=== PATIENT | female | born 1960 | race Caucasian/White ===

== ENCOUNTER → 2018-11-29 13:58 | Outpatient (CLI) | payer MEDICARE, SELFPAY | PROVIDERS: PCP General Practice; Visit Provider Nurse Practitioner Family | DX: R00.2 Palpitations (principal) | CPT/HCPCS: 93270 ==

== ENCOUNTER → 2021-10-31 06:58 | Outpatient (CLI) | payer MEDICARE, MEDICAID, SELFPAY ==
--- NOTE | 2021-10-31 06:59 | CA_ITS ---
APPROVED REPORT EXAM: Comprehensive 2D, Doppler, and color-flow Echocardiogram Cylinder Handler: Rebecca Rogers RVT Ht: 5 ft 2 in Wt: 187lbs BSA: 1.86 BP: 155/73 mmHg Indications: CP,SOA,LILA,LOOP RECORDER,COPD,PALPS,HTN,HLD 2D Dimensions LVOT 2.24 cm (M/F) 1.5-2.5 LA Volume 28.00 mL LA Volume Index 15.13 mL/m2 (M/F) 16-34 M-Mode Dimensions RVDd 1.82 cm (0.9-2.6) LA Diam 3.26 cm (1.9-4.0) LVDd 3.90 cm (3.5-5.7) Ao Diam 2.75 cm (2.0-3.7) LVDs 2.08 cm (3.5-5.7) IVSd 0.59 cm (0.6-1.1) PWd 1.19 cm (0.6-1.1) EF (Teich) 78.60% FS 46.70% EDV (Teich) 65.90 mL TAPSE 2.64 (<1.7) ESV (Teich) 14.10 mL LV Diastology E Decel Time 157.00 (160-240 msec) E/A Ratio 0.9 MED E' 7.80 (< 7 cm/sec) E'/MED E' Ratio 7.81 (>14) LAT E' 9.40 (<10 cm/sec) E/LAT E' Ratio 6.48 (>14) Aortic Valve AO Peak GR. 6.00 mmHg Mitral Valve MV E Max Andrea. 61.00 (40-130 cm/s) MV A Velocity 67.00 (40-130 cm/s) E/A Ratio 0.91 MV Decel. Time 157.00 (160-240 ms) MV PHT 46.00 ms Pulmonary Valve PV Peak Velocity 101.00 (50-150 cm/s) Tricuspid Valve TR P. Velocity 117.00 cm/s RAP Estimate 10.00 mmHg RVSP 15.50 mmHg Left Ventricle Left atrium is normal size, left ventricle is normal size, there is no concentric left ventricular hypertrophy, visually estimated ejection fraction 55% with no regional wall motion abnormality, diastolic parameters are within normal range. Right Ventricle Right atrium and right ventricle are normal size and contractility. Aortic Valve Aortic valve is grossly normal, there is no aortic stenosis or aortic insufficiency. Mitral Valve Mitral valve grossly normal, there is trace mitral regurgitation. Tricuspid Valve Tricuspid grossly normal, there is trace tricuspid regurgitation, tricuspid regurgitation jet velocity is inadequate for calculation of the right ventricular systolic pressure. Pulmonic Valve Pulmonic valve is poorly visualized. Great Vessels Aortic root is normal size. Inferior vena cava is normal size with normal inspiratory collapse. Pericardium No significant pericardial effusion noted. Conclusion 1. Normal left ventricular size, preserved left ventricular systolic function, visually estimated ejection fraction 55% with no regional wall motion abnormality, diastolic parameters are within normal range. 2. Trace mitral and tricuspid regurgitation. 3. No significant pericardial effusion. 4. Inferior vena cava is normal size with normal inspiratory collapse. Electronically signed by : Ricardo Wheeler MD 10/31/2021 16:03:23
--- NOTE | 2021-10-31 06:59 | CA_ITS ---
APPROVED REPORT Exam: Pharmacologic Technologist: Bre Hooper, Ht: 5 ft 2 in Wt: 187 lbs BSA: 1.86 m2 HR: 63 bpm BP: 118/65 mmHg Rhythm: NSR Medical History Medical History: HTN, Hyperlipidemia Medications: Omeprazole,,,,, Aspirin,,,,, Pravastatin,,,,, Metoprolol Tartrate,,,,, Citalopram,,,,, Duoneb,,,,, Ropinirole,,,,, Estradiol,,,,, Tramadol,,,,, TriaMeRTINE,,,,, Allergies: TETRACYCLINES Cardiac Risk Factors: HTN, Hyperlipidemia Stress Test Details Test: LEXISCAN HR Resting HR: 70 bpm Max Heart Rate (APMHR): 157.080902 bpm Max HR Achieved: 85 bpm Target HR (85% APMHR): 133.022607 bpm % of APMHR: 54.14 Recovery HR: 79 bpm BP Resting BP: 118/65 mmHg Max BP: 151/60 mmHg Recovery BP: 142.0/52.0 mmHg ECG Resting ECG: NSR Clinical Reason for Termination: Completed Protocol Exercise duration: 04:01 min Highest Stage Achieved: Stress ECG Conclusion <1.[address] SEGMENT CHANGES. NON-DIAGNOSTIC Test Summary RECOVERY 01:32 . . 76 . 142/ 52 . . Stage 1 01:00 . . 84 . . . . Stage 2 01:00 . . 83 . . . . Stage 3 01:00 . . 82 . 141/ 61 . . Stage 4 01:00 . . 79 . 128/ 62 . . Stage 4 01:01 . . 79 . 128/ 62 . Stop exercise at 04:01 RECOVERY 01:00 . . 78 . . . . RECOVERY 01:32 . . 76 . 142/ 52 . . Electronically signed by : Ricardo Wheeler MD 10/31/2021 12:13:13
--- NOTE | 2021-10-31 06:59 | NM_ITS ---
APPROVED REPORT Exam: Nuclear Stress Test Indication: HTN, HYPERLIPIDEMIA, FM HX., C.P., SOB, PALPITATIONS, FATIGUE Patient Location: Outpatient Stress Tech: Bre Hooper RI Tech:BRONSON Carmona RT (R)(N)(M) Ht: 5 ft 3 in Wt: 184 lbs Bra Size: 38C HR: 63 bpm BP: 118/65 mmHg BSA: 1.87 m2 BMI: 32.5 History: HTN, HYPERLIPIDEMIA, FM HX., C.P., SOB, PALPITATIONS, FATIGUE Procedure: Patient received a 0.4 mg of intravenous Lexiscan, resting heart rate 63 bpm, resting blood pressure 118/65 mmHg, with Lexiscan maximum heart rate achived was 84 bpm which is Less than 85 % of the maximum predicted heart rate and blood pressure was 151/60 mmHg. With Lexiscan, patient denied any complaint of chest pain. Electrocardiogram Still electrocardiogram shows sinus rhythm, with Lexiscan there is less than 1.[address] segment depression noted from the baseline EKG. The EKG portion of the Lexiscan is nondiagnostic. Cardiac Stress and Resting SPECT Images: Cardiac Stress and Resting SPECT images were obtained using technetium 99m Myoview 29.9 mCi stress and 10.81 mCi at rest. Gated SPECT for analysis of segmental wall motion and calculation of the ejection fraction also done. Cardiac stress and resting SPECT images show mild fixed defect in the anterior wall with normal contractility on the gated SPECT is likely secondary to soft tissue attenuation, no reversible ischemia seen, computer derived ejection fraction is 60% with no regional wall motion abnormality, right ventricle is normal size and contractility. Conclusion: 1. The EKG portion of the Lexiscan is nondiagnostic. 2. No scintigraphic evidence of reversible ischemia seen, computer derived ejection fraction 60% with no regional wall motion abnormality, right ventricle is normal size and contractility. 3. Likely normal Lexiscan Myoview study. Electronically signed by : Ricardo Wheeler MD 10/31/2021 12:15:30
== END ==
PROVIDERS: PCP General Practice; Visit Provider Physician Assistant
DX: E78.2 Mixed hyperlipidemia (principal); G47.33 Obstructive sleep apnea (adult) (pediatric); I10 Essential (primary) hypertension; R07.89 Other chest pain; Z98.890 Other specified postprocedural states; R06.00 Dyspnea, unspecified
CPT/HCPCS: 78452; 93017; 93306; A9502; J2785

== ENCOUNTER 2023-04-10 08:57 | Emergency (ER) | payer MEDICARE, MEDICAID, SELFPAY ==
[2023-04-10] VITALS (23 sets, daily range): BP systolic 108–149; BP diastolic 49–75; PULSE 60–71; RESP 13–20; TEMP 36.6–36.7; O2SAT 90–97; BMI 34.5
--- NOTE | 2023-04-10 08:57 | ECG_ITS ---
APPROVED REPORT Exam: Resting ECG HR:68 bpm ECG Measurements Heart Rate 68 AXES WY 205 P 73 QRSd 105 QRS 79 QT 408 T 73 QTc 425 Conclusion SINUS RHYTHM NORMAL ECG UNCONFIRMED REPORT Electronically signed by : Angel Luis Clark MD 04/12/2023 15:54:11
--- NOTE | 2023-04-10 09:04 | PC.NURSE ---
PT ACCEPTED BY DR ZAVALA FOR ADMISSION
--- NOTE | 2023-04-10 09:09 | PC.NURSE ---
Dr. Cadet at bs for pt eval
--- NOTE | 2023-04-10 09:14 | XR_ITS ---
PROCEDURE INFORMATION: Exam: XR Chest Exam date and time: 04/10/2023 9:31 AM Age: 62 years old Clinical indication: Chest wall pain and radiating; Additional info: Chest pain TECHNIQUE: Imaging protocol: Radiologic exam of the chest. Views: 1 view. COMPARISON: No relevant prior studies available. FINDINGS: Tubes, catheters and devices: Loop recorder overlies the left heart Lungs: Mild opacity in the medial right base Pleural spaces: Unremarkable. No pleural effusion. No pneumothorax. Heart/Mediastinum: Unremarkable. No cardiomegaly. Bones/joints: Unremarkable. IMPRESSION: Mild opacity in the medial right base may represent atelectasis or pneumonia..
--- NOTE | 2023-04-10 09:15 | HMH.EDGENADL ---
Discharge Plan Disposition Patient Disposition: Still a Patient Condition: Good Chief Complaint: Chest Pain Prescriptions Prescriptions: No Action aspirin [Aspir-81] 81 mg tablet,delayed release (DR/EC) 81 mg PO DAILY citalopram 20 mg tablet 20 mg PO DAILY estradiol 0.5 mg tablet 0.5 mg PO DAILY tramadol 50 mg tablet 25 mg PO BID omeprazole 20 mg capsule,delayed release(DR/EC) 20 mg PO DAILY ropinirole 1 mg tablet 1 mg PO QHS triamterene-hydrochlorothiazid [Maxzide] 75-50 mg tablet 1 tab PO DAILY Qty: 90 4RF metoprolol tartrate 75 mg tablet 75 mg PO BID Qty: 180 3RF ipratropium-albuterol 0.5 mg-3 mg(2.5 mg base)/3 mL solution for nebulization 3 ml INHALATION QID PRN (Reason: shortness of breath) Qty: 3 3RF rosuvastatin [Crestor] 40 mg tablet 40 mg PO DAILY Qty: 30 11RF Activity Restrictions/Add. Instructions Additional Instructions/Restrictions: At this time is slightly safe to be discharged home. If new or worsening symptoms please do not hesitate to return the emergency department. Please call and schedule follow-up appointment with Dr. Garrison as soon as you are able for continued evaluation of your chest pain and elevated kidney function. Clinical Impressions Clinical Impression: Creatinine elevation, Chest pain Discharge ED Provider: Flynn Cadet General Adult HPI General Chief complaint: Chest Pain Stated complaint: chest pain Time Seen by Provider: 04/10/23 09:04 Mode of Arrival: Ambulatory Source of Information: Patient Limitations: No Limitations Description of Symptoms (Recalled from ER Triage Doc. by RN): PT C/O PAIN UNDER LEFT SHOULDER AND LEFT BREAST THAT STARTED YESTERDAY AM. C/O LEFT ARM TINGLING THAT BEGAN THIS AM. DENIES SHORTNESS OF BREATH, DENIES N/V History of Present Illness HPI narrative: Patient is a 62-year-old female with past medical history of hypertension, previous palpitations, hyperlipidemia who presents emergency department for evaluation of chest pain. Onset was acute, occurring Wednesday, starting in her shoulder blades radiating through to her chest. Largely nonmodifiable with the exception of laying down with slight improvement. Patient denies acute cough, abdominal pain, dysuria, other acute complaints at this time. Related Data Home Medications Medication Instructions Recorded Confirmed aspirin 81 mg tablet,delayed 81 mg PO DAILY 05/16/18 01/06/23 release (Aspir-) citalopram 20 mg tablet 20 mg PO DAILY 05/16/18 01/06/23 estradiol 0.5 mg tablet 0.5 mg PO DAILY 05/16/18 01/06/23 ropinirole 1 mg tablet 1 mg PO QHS 01/30/19 01/06/23 tramadol 50 mg tablet 25 mg PO BID 01/30/20 01/06/23 omeprazole 20 mg capsule,delayed 20 mg PO DAILY 02/04/21 01/06/23 release Previous Rx's Medication Instructions Recorded triamterene 75 1 tab PO DAILY #90 tabs 01/30/20 mg-hydrochlorothiazide 50 mg tablet (Maxzide) metoprolol tartrate 75 mg tablet 75 mg PO BID #180 tabs 11/19/21 ipratropium 0.5 mg-albuterol 3 mg 3 ml inhalation QID PRN shortness 11/21/21 (2.5 mg base)/3 mL nebulization of breath #3 mL soln rosuvastatin 40 mg tablet (Crestor) 40 mg PO DAILY #30 tabs 09/22/22 Allergies Allergy/AdvReac Type Severity Reaction Status Date / Time Tetracyclines [TETRACYCLINES] Allergy Unknown Verified 01/06/23 10:55 amlodipine AdvReac cough Verified 01/06/23 10:55 [facility] Disclaimer: The information contained in this section may have been updated after the patient was seen, as this information can be updated by other users. Medical History Chest pain Dyspnea Social History Smoking Status: Current every day smoker tobacco type: cigarettes second hand exposure: No alcohol intake: never substance use type: denies use current occupational status: employed and unemployed Travel in the last 8
--- NOTE | 2023-04-10 09:35 | PC.NURSE ---
RAD at for cxr
[2023-04-10 09:48] LABS: Basophils # 0.1 K/mm3 (0-0.2); Basophils % 0.8 % (0.1-2.0); Eosinophils # 0.2 K/mm3 (0.0-0.4); Eosinophils % 1.6 % (0.1-12.0); Hematocrit 48.8 % (37.0-47.0); Hemoglobin 16.7 g/dL (12.2-16.2); Lymphocytes # 2.5 K/mm3 (0.7-4.5); Lymphocytes % 18.5 % (10-50); Mean Corpuscular HGB Conc 34.2 g/dL (31.8-35.4); Mean Corpuscular Hemoglobin 31.4 pg (27.0-31.2); Mean Corpuscular Volume 91.8 fl (81-99); Mean Platelet Volume 9.5 fl (7.4-10.4); Monocytes % 7.4 % (1.7-9.3); Neutrophils # 9.6 K/mm3 (1.8-7.8); Neutrophils % 71.8 % (37.0-80.0); Platelet Count 208 K/mm3 (142-424); Red Blood Count 5.31 M/mm3 (4.20-5.40); Red Cell Distribution Width 12.8 % (11.5-17.5); White Blood Count 13.4 K/mm3 (4.8-10.8)
--- NOTE | 2023-04-10 09:48 | PC.NURSE ---
pt ambulated to restroom with no problems
--- NOTE | 2023-04-10 09:54 | PC.NURSE ---
pt is now back in room hooked back up to data machine turned light off for pt,call light at bs
[2023-04-10 10:22] LABS: Alanine Aminotransferase 26 U/L (12-78); Albumin Level 4.4 g/dl (3.5-5.0); Albumin/Globulin Ratio 1.3 (1.1-1.8); Alkaline Phosphatase 67 U/L (38-126); Anion Gap 13.9 mEq/L (5-15); Aspartate Amino Transferase 31 U/L (14-36); Bilirubin,Total 0.8 mg/dl (0.2-1.3); Blood Urea Nitrogen 41 mg/dl (7-17); Calcium 9.8 mg/dl (8.4-10.2); Carbon Dioxide 31 mmol/L (22.0-30.0); Chloride 100 mmol/L (98-107); Creatinine Clearance Estimated 43 mL/min (50-200); Estimated Glomerular Filt Rate 28 ml/min (>60); GFR (African American) 34 ML/MIN (>60); Globulin 3.3 g/dL (1.3-3.2); Glucose 98 mg/dl (74-100); Potassium 3.9 mmoL/L (3.5-5.1); Sodium 141 mmol/L (136-145); Total Protein,Serum 7.7 g/dl (6.3-8.2)
--- NOTE | 2023-04-10 10:44 | PC.NURSE ---
Rounded on pt. No needs or complaints voiced. Call light within reach.
[2023-04-10 10:59] LABS: Troponin I < 0.01 ng/ml (0.00-0.034)
--- NOTE | 2023-04-10 11:07 | PC.NURSE ---
pt resting in bed no needs at this time, call light at bs
--- NOTE | 2023-04-10 11:07 | PC.NURSE ---
speaking with about admitting pt
--- NOTE | 2023-04-10 11:16 | PC.NURSE ---
Dr. Cadet at BS to update pt
[2023-04-10 11:36] LABS: D-Dimer 1.07 ug/mL (0.0-0.5)
--- NOTE | 2023-04-10 12:26 | CT_ITS ---
PROCEDURE INFORMATION: Exam: CTA Chest With Contrast Exam date and time: 04/10/2023 2:11 PM Age: 62 years old Clinical indication: Pain; Radiating; Additional info: Cp radiating to back, elevated dimer TECHNIQUE: Imaging protocol: Computed tomographic angiography of the chest with contrast. Exam focused on the arteries. 3D rendering (Not supervised by radiologist): MIP and/or 3D reconstructed images were created by the technologist. Radiation optimization: All CT scans at this facility use at least one of these dose optimization techniques: automated exposure control; mA and/or kV adjustment per patient size (includes targeted exams where dose is matched to clinical indication); or iterative reconstruction. Contrast material: ISOVUE; Contrast volume: 100 ml; Contrast route: INTRAVENOUS (IV); REPORTING DATA: Count of CT and Cardiac NM exams in prior 12 months: This patient has received 0 known CTs and 0 known cardiac nuclear medicine studies in the 12 months prior to the current study. COMPARISON: CR XR CHEST PORTABLE 04/10/2023 9:31 AM FINDINGS: Pulmonary arteries: No evidence of pulmonary embolus to the segmental level. Aorta: No aneurysm of the aorta. No dissection of the aorta. Lungs: Unremarkable. No consolidation. No masses. Pleural spaces: Unremarkable. No pneumothorax. No pleural effusion. Heart: Unremarkable. No cardiomegaly. No pericardial effusion. Coronary arteries: Coronary artery calcifications may indicate coronary artery disease. Lymph nodes: Unremarkable. No enlarged lymph nodes. Gallbladder and bile ducts: Cholecystectomy Bones/joints: Unremarkable. No acute fracture. Soft tissues: Unremarkable. IMPRESSION: 1. No evidence of pulmonary embolus to the segmental level. 2. No aneurysm of the aorta. 3. No dissection of the aorta.
--- NOTE | 2023-04-10 12:35 | HMH.ITSTN ---
GFR was 28 Orignally the CTA was cancelled and d-dimer ran then put back in due to GFR being low fluids are being given will scan after fluids
--- NOTE | 2023-04-10 14:06 | PC.NURSE ---
PT gone to RAD via wheelchair
--- NOTE | 2023-04-10 14:15 | PC.NURSE ---
Pt returned from RAD
[2023-04-10 15:27] LABS: Troponin I < 0.01 ng/ml (0.00-0.034)
--- NOTE | 2023-04-10 16:09 | PC.NURSE ---
pt ambulated to restroom with no assistance
[2023-04-10 16:41] LABS: Troponin I < 0.01 ng/ml (0.00-0.034)
--- NOTE | 2023-04-10 16:46 | PC.NURSE ---
pt resting in bed no needs at this time we are still waiting on ct results to come back
--- NOTE | 2023-04-10 17:10 | PC.NURSE ---
Dr. Krishnan at to update pt/visitor of results
--- NOTE | 2023-04-10 17:15 | HMH.EDGENADL ---
Discharge Plan Disposition Patient Disposition: Still a Patient Condition: Good Prescriptions Prescriptions: No Action aspirin [Aspir-81] 81 mg tablet,delayed release (DR/EC) 81 mg PO DAILY citalopram 20 mg tablet 20 mg PO DAILY estradiol 0.5 mg tablet 0.5 mg PO DAILY tramadol 50 mg tablet 25 mg PO BID omeprazole 20 mg capsule,delayed release(DR/EC) 20 mg PO DAILY ropinirole 1 mg tablet 1 mg PO QHS triamterene-hydrochlorothiazid [Maxzide] 75-50 mg tablet 1 tab PO DAILY Qty: 90 4RF metoprolol tartrate 75 mg tablet 75 mg PO BID Qty: 180 3RF ipratropium-albuterol 0.5 mg-3 mg(2.5 mg base)/3 mL solution for nebulization 3 ml INHALATION QID PRN (Reason: shortness of breath) Qty: 3 3RF rosuvastatin [Crestor] 40 mg tablet 40 mg PO DAILY Qty: 30 11RF Referrals Follow up/Referrals: Ryder Garrison MD [Staff Physician] - See instructions Activity Restrictions/Add. Instructions Additional Instructions/Restrictions: At this time is slightly safe to be discharged home. If new or worsening symptoms please do not hesitate to return the emergency department. Please call and schedule follow-up appointment with Dr. Garrison as soon as you are able for continued evaluation of your chest pain and elevated kidney function. Clinical Impressions Clinical Impression: Creatinine elevation, Chest pain Discharge ED Provider: Flynn Cadet General Adult HPI General Chief complaint: Chest Pain Stated complaint: chest pain Time Seen by Provider: 04/10/23 09:04 Mode of Arrival: Ambulatory Source of Information: Patient Limitations: No Limitations Description of Symptoms (Recalled from ER Triage Doc. by RN): PT C/O PAIN UNDER LEFT SHOULDER AND LEFT BREAST THAT STARTED YESTERDAY AM. C/O LEFT ARM TINGLING THAT BEGAN THIS AM. DENIES SHORTNESS OF BREATH, DENIES N/V Related Data Home Medications Medication Instructions Recorded Confirmed aspirin 81 mg tablet,delayed 81 mg PO DAILY 05/16/18 01/06/23 release (Aspir-) citalopram 20 mg tablet 20 mg PO DAILY 05/16/18 01/06/23 estradiol 0.5 mg tablet 0.5 mg PO DAILY 05/16/18 01/06/23 ropinirole 1 mg tablet 1 mg PO QHS 06/24/19 05/31/23 tramadol 50 mg tablet 25 mg PO BID 01/30/20 01/06/23 omeprazole 20 mg capsule,delayed 20 mg PO DAILY 02/04/21 01/06/23 release Previous Rx's Medication Instructions Recorded triamterene 75 1 tab PO DAILY #90 tabs 01/30/20 mg-hydrochlorothiazide 50 mg tablet (Maxzide) metoprolol tartrate 75 mg tablet 75 mg PO BID #180 tabs 11/19/21 ipratropium 0.5 mg-albuterol 3 mg 3 ml inhalation QID PRN shortness 11/21/21 (2.5 mg base)/3 mL nebulization of breath #3 mL soln rosuvastatin 40 mg tablet (Crestor) 40 mg PO DAILY #30 tabs 09/22/22 Allergies Allergy/AdvReac Type Severity Reaction Status Date / Time Tetracyclines [TETRACYCLINES] Allergy Unknown Verified 01/06/23 10:55 amlodipine AdvReac cough Verified 01/06/23 10:55 [facility] Disclaimer: The information contained in this section may have been updated after the patient was seen, as this information can be updated by other users. Medical History Chest pain Dyspnea Social History Smoking Status: Current every day smoker tobacco type: cigarettes second hand exposure: No alcohol intake: never substance use type: denies use current occupational status: employed and unemployed Travel in the last 8 weeks: Inside the [place] household members: spouse housing: house current occupational exposures/hazards: No caffeine: No Physical Exam General General appearance: alert and in no apparent distress Medical Decision Making Vital Signs: 04/10/23 08:58 04/10/23 09:04 04/10/23 09:30 Temperature 97.9 F Temperature Source Oral Pulse Rate 65 63 Pulse Rate [Apical] 68 Respiratory R
== END 2023-04-10 17:20 | disposition still patient (30) ==
PROVIDERS: Emergency Provider Emergency Medicine; PCP Nurse Practitioner Family
DX: R07.9 Chest pain, unspecified (principal); M25.511 Pain in right shoulder; R94.4 Abnormal results of kidney function studies; F17.210 Nicotine dependence, cigarettes, uncomplicated
CPT/HCPCS: 36415; 71045; 71275; 80053; 84484; 85025; 85378; 93005; 96361; 96374; 99285; Q9967

== ENCOUNTER 2024-05-08 10:55 | Outpatient (CLI) | payer MEDICARE, MEDICAID, SELFPAY ==
--- NOTE | 2024-05-08 10:59 | US_ITS ---
FINAL REPORT CLINICAL HISTORY: claudication, current smoker, HTN, hyperlipidemia, bilateral rest pain. COMPARISON: None FINDINGS: ANKLE-BRACHIAL PRESSURE INDICES Pressure indices are as follows: RIGHT LOWER EXTREMITY: Ankle-brachial pressure index: 0.99 Comments: Normal LEFT LOWER EXTREMITY: Ankle-brachial pressure index: 1.1 Comments: Normal CONCLUSION: No evidence of significant obstructive peripheral vascular disease of the lower extremities Reviewed, Interpreted and Dictated by Radu Oconnell MD Transcribed by Aruna Palmer Authenticated and [facility]
== END 2024-05-08 23:59 | disposition home or self-care (01) ==
LOC: RT 10:56
PROVIDERS: PCP Nurse Practitioner Family; Visit Provider Physician Assistant
DX: I73.9 Peripheral vascular disease, unspecified (principal)
CPT/HCPCS: 93923

== ENCOUNTER 2024-10-25 11:19 | Outpatient (CLI) | payer MEDICARE, MEDICAID, SELFPAY ==
[2024-10-25 12:20] LABS: Albumin Level 4.8 g/dl (3.5-5.0); Chloride 97 mmol/L (98-107); Potassium 4.2 mmoL/L (3.5-5.1); Sodium 138 mmol/L (136-145)
[2024-10-25 12:22] LABS: Blood Urea Nitrogen 20 mg/dl (7-17); Estimated Glomerular Filt Rate 55 ml/min (>60); GFR (African American) 67 ML/MIN (>60)
[2024-10-25 12:23] LABS: Alanine Aminotransferase 29 U/L (12-78); Alkaline Phosphatase 56 U/L (38-126); Anion Gap 9.2 mEq/L (5-15); Aspartate Amino Transferase 28 U/L (14-36); Bilirubin,Direct 0.1 mg/dl (0.0-0.4); Bilirubin,Indirect 1.1 mg/dL (0.0-0.9); Bilirubin,Total 1.2 mg/dl (0.2-1.3); Bilirubin,Unconjugated 1.1 mg/dL (0.0-1.1); Calcium 9.9 mg/dl (8.4-10.2); Carbon Dioxide 36 mmol/L (22.0-30.0); Chol/HDL Ratio 2.9 (1-3.5); Cholesterol 104 mg/dl (140-200); Glucose 85 mg/dl (74-100); HDL Cholesterol 36 mg/dl (40-60); Total Protein,Serum 6.9 g/dl (6.3-8.2); Triglycerides 203 mg/dl (30-150); VLDL Cholesterol 41 mg/dL (0-40)
[2024-10-25 12:34] LABS: Direct LDL Cholesterol 39.86 mg/dL (100-129)
[2024-10-25 12:41] LABS: Free T4 (Free Thyroxine) 1.31 ng/dl (0.78-2.19)
[2024-10-25 12:54] LABS: Thyroid Stimulating Hormone 1.95 uIU/mL (0.465-4.68)
[2024-10-25 13:54] LABS: Basophils % 0.6 % (0.1-2.0); Eosinophils % 3.7 % (0.1-12.0); Hematocrit 48.4 % (37.0-47.0); Hemoglobin 16.9 g/dL (12.2-16.2); Lymphocytes % 25.7 % (10-50); Mean Corpuscular HGB Conc 34.9 g/dL (31.8-35.4); Mean Corpuscular Hemoglobin 31.4 pg (27.0-31.2); Mean Corpuscular Volume 89.8 fl (81-99); Mean Platelet Volume 11.5 fl (7.4-10.4); Monocytes % 7.8 % (1.7-9.3); Neutrophils % 61.9 % (37.0-80.0); Platelet Count 235 K/mm3 (142-424); Red Blood Count 5.39 M/mm3 (4.20-5.40); Red Cell Distribution Width 12.2 % (11.5-17.5)
[2024-10-25 13:55] LABS: Basophils # 0.1 K/mm3 (0-0.2); Eosinophils # 0.5 K/mm3 (0.0-0.4); Lymphocytes # 3.3 K/mm3 (0.7-4.5)
== END 2024-10-25 23:59 | disposition home or self-care (01) ==
LOC: LAB 11:20
PROVIDERS: PCP Nurse Practitioner Family; Visit Provider Physician Assistant
DX: I10 Essential (primary) hypertension (principal); E78.2 Mixed hyperlipidemia; G47.33 Obstructive sleep apnea (adult) (pediatric)
CPT/HCPCS: 36415; 80048; 80061; 80076; 84439; 84443; 85025

== ENCOUNTER 2024-11-22 10:12 | Outpatient (CLI) | payer MEDICARE, MEDICAID, SELFPAY | END 2024-11-22 23:59 | disposition home or self-care (01) | LOC: RT 10:13 | PROVIDERS: PCP Nurse Practitioner Family; Visit Provider Nurse Practitioner Family | DX: R00.2 Palpitations (principal) | CPT/HCPCS: 93270 ==

== ENCOUNTER 2025-02-23 15:53 | Emergency (ER) | payer MEDICARE, MEDICAID, SELFPAY ==
[2025-02-23 16:27] VITALS: BP 127/60; PULSE 68; RESP 14; TEMP 36.9; O2SAT 96; BMI 32.5
--- NOTE | 2025-02-23 16:28 | HMH.EDGENADL ---
Discharge Plan Disposition Patient Disposition: Home, Self-Care Condition: Good Prescriptions Prescriptions: New bacitracin 500 unit/gram ointment 1 applic topical BID Qty: 28 0RF cefadroxil 500 mg capsule 500 mg PO BID Qty: 10 0RF No Action aspirin [Aspir-81] 81 mg tablet,delayed release (DR/EC) 81 mg PO DAILY citalopram 20 mg tablet 20 mg PO DAILY estradiol 0.5 mg tablet 0.5 mg PO DAILY tramadol 50 mg tablet 25 mg PO BID omeprazole 20 mg capsule,delayed release(DR/EC) 20 mg PO DAILY fluticasone propionate 50 mcg/actuation spray,suspension intranasal Patient Comments: SPRAY ONE (1) SPRAY BY INTRANASAL ROUTE IN EACH NARE EVERY NIGHT AT BEDTIME ropinirole 1 mg tablet 1 mg PO QHS triamterene-hydrochlorothiazid [Maxzide] 75-50 mg tablet 1 tab PO DAILY Qty: 90 4RF Myrbetriq 25 mg tablet extended release 24 hr 25 mg PO DAILY albuterol sulfate 2.5 mg /3 mL (0.083 %) solution for nebulization 2.5 mg continuous nebulization ONCE PRN albuterol sulfate 90 mcg/actuation HFA aerosol inhaler 1 inh inhalation PRN metoprolol succinate [Toprol XL] 100 mg tablet extended release 24 hr 150 mg PO DAILY Qty: 120 3RF ipratropium-albuterol 0.5 mg-3 mg(2.5 mg base)/3 mL solution for nebulization 3 ml INHALATION QID PRN (Reason: shortness of breath) Qty: 3 3RF rosuvastatin 40 mg tablet See Rx Instructions .ROUTE .COMPLEX Qty: 90 4RF Dose Instruction: TAKE 1 TABLET EVERY DAY Rx Instructions: TAKE 1 TABLET EVERY DAY Referrals Follow up/Referrals: Tacho Oconnell APRN [Primary Care Provider, Medical] - See instructions Activity Restrictions/Add. Instructions Additional Instructions/Restrictions: Apply the bacitracin to the wound twice daily. Keep the wound clean with soap and water daily. Use the antibiotics as prescribed for 5 days. Return to the emergency department or your primary care provider if you see any signs of infection including significant drainage redness severe swelling. Clinical Impressions Clinical Impression: Laceration Print Language Print Language: Spanish Discharge ED Provider: Angelina Ryan Adult [facility] General Chief complaint: Extremity Injury, Upper Stated complaint: AO 02/23/25 1500 laceration left hand Time Seen by Provider: 02/23/25 16:22 History of Present Illness HPI narrative: Patient is a 64-year-old female on Plavix but no other blood thinners with a recent updated tetanus who presented to the emergency department with a laceration to the left hand. Patient states that she got her hand caught between 2 pieces of wood. Patient denies any numbness weakness decreased ability to move her hand. Patient states this occurred just prior to arrival. Patient denies any significant bleeding. Related Data Home Medications ?Medication ?Instructions ?Recorded ?Confirmed aspirin 81 mg tablet,delayed 81 mg PO DAILY 05/16/18 12/19/24 release (Aspir-) citalopram 20 mg tablet 20 mg PO DAILY 05/16/18 12/19/24 estradiol 0.5 mg tablet 0.5 mg PO DAILY 05/16/18 12/19/24 ropinirole 1 mg tablet 1 mg PO QHS 01/30/19 12/19/24 tramadol 50 mg tablet 25 mg PO BID 01/30/20 12/19/24 omeprazole 20 mg capsule,delayed 20 mg PO DAILY 02/04/21 12/19/24 release mirabegron 25 mg tablet,extended 25 mg PO DAILY 04/19/23 12/19/24 release 24 hr (Myrbetriq) albuterol sulfate 2.5 mg/3 mL 2.5 mg continuous nebulization 10/25/24 12/19/24 (0.083 %) solution for nebulization ONCE PRN albuterol sulfate 90 mcg/actuation 1 inh inhalation PRN 10/25/24 12/19/24 aerosol inhaler fluticasone propionate 50 intranasal 12/19/24 12/19/24 mcg/actuation nasal spray,suspension Previous Rx's ?Medication ?Instructions ?Recorded triamterene 75 1 tab PO DAILY #90 tabs 01/30/20 mg-hydrochlorothiazide 50 mg tablet (Maxzide) ipratropium 0.5 mg-albuterol 3 mg 3 ml inhalation QID PRN shortness 11/21/21 (2.5 mg base)/3 mL nebulization of breath #3 mL soln rosuvastatin 40 mg tablet See Rx Instructions .Route 08/16/24 .COMPLEX #90 tabs metoprolol succinate 100 mg 150 mg (1.5 x 100 mg) PO DAILY 11/22/24 tablet,extended release 24 hr #120 tabs (Toprol XL) bacitracin 500 unit/gram topical 1 applic topical BID #28 grams 02/23/25 ointment cefadroxil 500 mg capsule 500 mg PO BID #10 caps 02/23/25 Allergies Allergy/AdvReac Type Severity Reaction Status Date / Time Tetracyclines (TETRACYCLINES) Allergy Unknown Verified 12/19/24 10:38 amlodipine AdvReac cough Verified 12/19/24 10:38 PFSH [facility] Disclaimer: The information contained in this section may have been updated after the patient was seen, as this information can be updated by other users. Medical History Claudication Coronary artery calcification seen on CAT scan Dyspnea Chest pain Social History Smoking Status: Current every day smoker tobacco type: cigarettes second hand exposure: No alcohol intake: never substance use type: denies use current occupational status: employed and unemployed Travel in the last 8 weeks?: Inside the [place] household members: spouse housing: house current occupational exposures/hazards: No caffeine: No Have you lived/traveled outside [place] in past 30 days?: No Contact w/someone who lives/traveled outside [place] past 30 days?: No Exposure to someone with infectious disease in past 14 days?: No Do you have a fever (greater than 100.4 F or 38 C)?: No Have you tested positive for COVID-19?: No Exposed to someone with COVID-19 in past 14 days?: No Do you have a sore throat?: No Do you have a cough?: No Do you have any weakness?: No Do you have any diarrhea?: No Are you experiencing any unusual bleeding?: No Do you have any muscle aches/pain?: No Do you have any abdominal pain?: No Are you experiencing loss of taste or smell?: No Other Medical History Have you received the Flu Vaccine for this season: Yes Have you received the Pneumonia Vaccine: No ROS Obtained: Yes All systems reviewed & no additional complaints except as documented and Yes Systems reviewed as appropriate & no additional complaints except as documented Physical Exam General General appearance: alert and in no apparent distress Head Head exam: atraumatic, normocephalic and normal inspection Eye Eye exam: Present normal appearance, PERRL and EOMI; Absent scleral icterus ENT ENT exam: Present normal exam and normal external ear exam Neck Neck exam: Present normal inspection and full ROM Chest Chest inspection: Present normal inspection and symmetric chest wall rise Respiratory Respiratory exam: Present normal lung sounds bilaterally; Absent respiratory distress or wheezes Cardiovascular Cardiovascular exam: Present regular rate, normal rhythm and normal heart sounds Abdominal Exam Abdominal exam: Present soft and distention; Absent tenderness, guarding or rebound Extremities Exam Extremities exam: Present normal inspection, full ROM and other (Left hand with a laceration on the thenar eminence, V-shaped in nature, 4 cm) Back Exam Back exam: Present normal inspection and full ROM Neurological Exam Neurological exam: Present alert, oriented X3 and other (Full range of motion of the left hand, full extension and flexion of the fingers, sensation intact in the left hand) Psychiatric Psychiatric exam: Present normal affect and normal mood Skin Skin exam: Present warm and dry Medical Decision Making Medical Records Medical records reviewed: Yes I reviewed the patient's medical records. Screening: Per USPSTF and CDC recommendations, given the prevalence of disease in our region, it is our hospital?s policy to screen for HIV and viral Hepatitis for all patients aged 18 and over and those with ongoing risk factors. Ez Inquiry Pt receiving controlled substance: No Vital Signs: 02/23/25 16:27 02/23/25 19:14 Temperature 98.5 F 98.4 F Temperature Source Oral Oral Pulse Rate 68 Pulse Rate [Left] 68 Respiratory Rate 14 16 Blood Pressure 124/73 Blood Pressure [Right Arm] 127/60 Blood Pressure Mean [Right Arm] 82 Blood Pressure Source Automatic Cuff Blood Pressure Source [Right Arm] Automatic Cuff Blood Pressure Position Sitting 02 Sat by Pulse Oximetry 96 Oxygen Delivery Method Room Air Room Air Lab Data Lab results reviewed: Yes I reviewed the patient's lab results. Orders (Tests/Meds): ED MEDICATIONS Discontinued Medications Generic Name Dose Route Start Last Admin Trade Name Freq PRN Reason Stop Dose Admin Acetaminophen 1,000 mg 02/23/25 16:35 02/23/25 17:07 Acetaminophen 500mg Tab PO 02/23/25 16:36 1,000 mg ONCE ONE Administration Cocaine HCl 1 ml 02/23/25 16:37 02/23/25 17:08 Cocaine 4% Topical Soln 4ml Bottle TP 02/23/25 16:38 1 ml ONCE ONE Administration Epinephrine HCl 1 mg 02/23/25 16:37 02/23/25 17:08 Epinephrine 1 Mg/Ml Ampul TP 02/23/25 16:38 1 mg ONCE ONE Administration Lidocaine HCl 1 ml 02/23/25 16:37 02/23/25 17:09 Lidocaine 2% Urojet 10ml TP 02/23/25 16:38 1 ml ONCE ONE Administration Lidocaine HCl 10 ml 02/23/25 18:43 Lidocaine 1% 10ml Mdv SUBCUT 02/23/25 18:44 ONCE ONE ORDERS Category Date Time Status Hand XR left minimum 3 views [XR hand LT min 3V] Stat Exams 02/23/25 16:35 Completed Medical Decision Narrative: Patient is a 64-year-old female with a past medical history of coronary artery disease on Plavix without updated tetanus who presented to the emergency department with a laceration to the left hand just prior to arrival. On arrival, patient is hemodynamically stable with unremarkable vital signs. Differential includes but not limited to laceration, vascular injury, tendon injury, foreign body, nerve injury, amongst others. Patient was given Tylenol for pain, x-ray was obtained to rule out foreign body. Topical lidocaine was placed. Patient's x-ray was reviewed and interpreted by myself and showed no acute foreign body no open fracture. Patient's laceration was repaired with 4-0 absorbable chromic gut. Patient was sent with 5 days of antibiotics as well as topical bacitracin. Wound care instructions were provided and patient was discharged home in stable condition. Procedures Laceration Laceration 1: Site: hand (L thenar eminence) Size (cm): 4 Description: other (v-shaped) Depth: simple, single layer Local Anesthetic: lidocaine 1% Amount of anesthesia used (mL): 10 Pre-repair: wound explored, irrigated extensively and deep structures intact Skin layer closed with: other (chromic gut) Size (cm): 4-0 Number of sutures: 10 Technique: simple, interrupted Critical Care Critical Care Time Critical Care Time: No
--- NOTE | 2025-02-23 16:35 | XR_ITS ---
PROCEDURE INFORMATION: Exam: XR Left Hand Exam date and time: 02/23/2025 4:43 PM Age: 64 years old Clinical indication: Other: R/O fb, laceration TECHNIQUE: Imaging protocol: Radiologic exam of the left hand. Views: 3 or more views. COMPARISON: No relevant prior studies available. FINDINGS: Limitations: Metallic ring obscures the 4th finger proximal phalanx. Bones/joints: Normal anatomic alignment. The bone density is normal for this patient's age. 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 Moderate osteoarthritis of the proximal interphalangeal joints. Moderate osteoarthritis of the 1st carpometacarpal joint. Mild osteoarthritis of the radiocarpal joint. No acutely displaced fractures. No joint dislocation. No aggressive osseous lesions. Soft tissues: There is no significant soft tissue swelling. There is no evidence of a radio-opaque foreign body. IMPRESSION: 1. No acute skeletal pathology. 2. Moderate osteoarthritis. 3. No radiopaque foreign bodies.
--- OUTSIDE RECORDS SUMMARY | 2025-02-23 16:37 | XMS_ITS | Data Portability ---
Author Organization [facility] Address [address] [place] [address] Care Team Providers Care Donor Specialist Name Role Phone EMORY CARTAGENA Primary Care Provider [phone] Assessment No assessment recorded. Plan of Treatment Reminders Order Date Submit Date Provider Last Modified By Organization Details Last Modified Time Details Appointments None recorded. Lab None recorded. Referral None recorded. Procedures None recorded. Surgeries None recorded. Imaging LDCT, chest, for lung cancer screening 2023 025 RENEE Hutton (Centralized Scheduling), [address] [place] [address] Shanel Arreaga, [place], [address], 5 14:54:22 LDCT, chest, for lung cancer screening 2023 024 [facility] Brennen (Centralized Scheduling), [facility] [address], [place], [address], 4 14:30:31 Medication Orders albuterol sulfate HFA 90 mcg/actuati on aerosol inhaler [address], [address], 5 09:44:59 ipratropium 0.5 mg-albutero l 3 mg (2.5 mg base)/3 mL nebulizatio n soln 2024 025 [address], [address], 5 09:45:05 albuterol sulfate HFA 90 mcg/actuati on aerosol inhaler 2023 024 10Six n42 [facility], [address], [place], [address], 4 11:42:14 ipratropium 0.5 mg-albutero l 3 mg (2.5 mg base)/3 mL nebulizatio n soln 2023 024 10Six n4 [facility], [address], [place], [address], 11:35:52 Patient TargetsNo targets recorded. Patient Instructions Encounter Date Encounter Id Patient Instructions Last Modified By Organization Details Last Modified Time 05/24/[id number] scan of chest in 1 year or after November 27, 2023 as per radiologist recommendations.* Continue CPAP 12 cm each and every night full sleep cycle. Patient benefits from CPAP with resolution of fatigue, witnessed apneas and snores. She is on CPAP with an apnea plus hypopnea index of 2.9. She wants to try a nasal mask with chin strap as needed, will send order over to [facility]. Continue albuterol or duo nebs q.4 hours p.r.n.. Return to clinic in 4-5 months. [email or web address] Not available 05/24/2023 10:04:25 09/28/[id number] scan of chest in 1 year or after November 27, 2023 as per radiologist recommendations.* Continue CPAP 12 cm each and every night full sleep cycle. Patient benefits from CPAP with resolution of fatigue, witnessed apneas and snores. She is on CPAP with an apnea plus hypopnea index of 5.4. She wanted to try a nasal mask with chin strap as needed, will send order over to [facility]. Continue albuterol or duo nebs q.4 hours p.r.n.. Return to clinic in 8-9 weeks. [email or web address] Not available 09/28/2023 11:42:28 11/29/[id number] scan of chest in 1 year or November 24, 2024 as per radiologist recommendations.* Continue CPAP 12 cm each and every night full sleep cycle. Patient benefits from CPAP with resolution of fatigue, witnessed apneas and snores. Continue albuterol or duo nebs q.4 hours p.r.n.. Return to clinic July 2024. Not available 11/29/2023 10:51:30 07/10/[id number] scan of chest in 1 year or November 24, 2024 as per radiologist recommendations.* Continue CPAP 12 cm each and every night full sleep cycle. Patient benefits from CPAP with resolution of fatigue, witnessed apneas and snores. Continue albuterol or duo nebs q.4 hours p.r.n.. Return to clinic December 2024. She has due a new nasal CPAP mask and supplies, will send order over to [facility]. [email or web address] Not available 07/10/2024 10:33:23 12/13/[id number] scan of chest in 1 year or November 2025 as per radiologist recommendations.* Continue CPAP 12 cm each and every night full sleep cycle. Patient benefits from CPAP with resolution of fatigue, witnessed apneas and snores. Continue albuterol or duo nebs q.4 hours p.r.n.. 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 [email or web address] Not available 12/13/2024 09:45:11 Reason for Referral None Reported. Results Created Date Observation Date Name Description Value Unit Range Abnormal Flag Note LastModifiedBy Organization Detail LastModifiedTime 05/24/2011/26/2022 LDCT, chest , for lung nighat campoverde No observ ation record ed. Brennen (Centralized Scheduling) [address] [facility] , [place], [address], 05/24/2023 10:18:14 11/25/19 24 11/25/2023 - ldct lung scree n [facility] Name: ROYCE BARTH [email or web address] Phys: Shelby wright MD, [place] [address] : 1960 Age: 63 Sex: F Acct: [id number] Loc: G.CT PHONE #: Exam Date: 2023 Status : REG CLI FAX #: Rad# [id number] Unit# [id number] Admit Date: 2023 EXAMS: CPT CODE: [id number] CT CHEST LDCT LUNG SCREEN G0297 CLINIC AL INFORM ATION: Asympt omatic patien t patien t with a histor y of tobacc o use and a writte n order from a clinic carey obtain ed during a lung cancer screen ing counse ling and care hairisi on-juan ing visit. 30+-pa ck-yea r histor y tobacc o use. Cessat ion of 8 years ago. TECHNI QUE: Low-do se protoc ol CT ( LDCT ) images of the chest are obtain ed withou t intrav enous contra st, from the lung apices throug h the lung bases, for lung cancer screen ing. Automa jennifer exposu re contro l was employ ed for dose reduct ion. Patien t Height : 64 inches Patien t Weight : 182 pounds CTDI Vol.: 2.01 mGy DLP: 70.11 mGy*cm COMPAR RELL: 11/26/ 3 and older studie s as necess talon FINDIN GS: Low neck and axilla : No signif icant abnorm alitie s. Heart/ Medias tinum/ roma: Three- vessel reyes ry artery calcif icatio n. No pathol ogic adenop athy. Aorta grossl y unrema rkable Upper abdome n and skelet on: Cholec ystect shantel. No aggres sive osseou s lesion s Lungs: Mild emphys silver. Multip le calcif ied granul omata as before . Chroni c atelec tasis right middle lobe and lingul a. No pathol ogic pulmon talon nodula rity, infilt rate or effusi on. IMPRES JACOBY: Study detail limite d by non-co ntrast low dose techni que. 1. Mild emphys silver withou t pathol ogic pulmon talon nodula rity or acute diseas e. 2. Interv al resolu tion 2 mm nodule left lower lobe. *Recom mend follow -up LDCT in 12 months . LRAD1 - NEGATI VE LR1YR - ANNUAL SCREEN ING IN 12 MONTHS Commun icatio n: Per this writte n report . NOTE: Any incide ntally noted liver lesion s equal to or less than 5 mm, cystic lesion s in the kidney s PAGE 1 Signed Report (KARLA NUED) [facility] Name: ROYCE BARTH [facility] Phys: Shelby wright MD, [place] [address] : 1960 Age: 63 Sex: F Acct: [id number] Loc: G.CT PHONE #: Exam Date: 2023 Status : REG CLI FAX #: [phone] Rad# [id number] Unit# [id number] Admit Date: 2023 EXAMS: CPT CODE: [id number] CT CHEST LDCT LUNG SCREEN G0297 less than 1 cm, and/or adrena l lesion s equal to or less than 1 cm, genera lly are consid ered highly likely to be benign and no additi onal evalua tion is recomm ended, unless specif ically This report is genera jennifer using voice recogn ition comput er softwa re. Inadve rtent errors may have occurr ed while dictat ing report . Common sense approa ch is apprec iated and do not hesita te to call for clarif icatio n when necess talon. Electr onical ly Signed by Mina Henson on 2023 at 1159 Report ed and signed by: SIMONA Henson M.D. CC: Alfred wright M.D.; Irwin Oconnell APRN Dictat ed Date/T robbi: 2023 (1159) Techno logist : EDDIE Henson RT(R)( CT) Transc ribed Date/T robbi: 2023 (1159) Transc riptio nist: DR.HAR CARISA delarosa Signat ure Date/T robbi: 2023 (1159) Printe d Date/T robbi: 2023 (1201) BATCH NO: N/A PAGE 2 Signed Report CC'ed Logic: Orderi ng Provid er: SHELBY ANDERSON Y Attend ing Provid er: SHELBY ANDERSON Y Referr ing Provid er: SHELBY ANDERSON Y Consul ting Provid er: MIRIAM urbina [address] , [place], [address], 11/25/2023 12:56:12 11/29/19 24 11/25/2023 LDCT, chest , for lung gerardoce r lenny campoverde No observ ation record ed. BARCODE Not Available 2023 10:47:08 11/30/19 25 11/21/2024 - ldct lung screandrew n [facility] Name: ROYCE BARTH [address] [place] [address] Phys: Shelby wright MD, [place] [address] : 1960 Age: 64 Sex: F Acct: [id number] Loc: G.CT PHONE #: Exam Date: 2024 Status : DEP CLI FAX #: Rad# [id number] Unit# [id number] Admit Date: 2024 EXAMS: CPT CODE: [id number] CT CHEST LDCT LUNG SCREEN G0297 CT LOW DOSE LUNG CANCER SCREEN ING Indica tion: Annual screen ing. Compar rell: November 25, 2023. Techni que: A low dose CT of the chest withou t intrav enous contra st was perfor med and reform atted in the axial plane at 1 - 1.25 mm sectio n thickn ess, as per the lung cancer screen ing protoc ol. Images were reform atted into axial 5 mm images at 5 mm interv al and axial 8 mm MIP images at 1 mm interv al. Additi onal reyes l and sagitt al recons tructi ons were includ ed. Radiat ion dose loweri ng techni que, automa jennifer exposu re contro l, utiliz ed. Findin gs: Exam parame ters/ diagno stic qualit y: Satisf actory Lung Nodule s: None. Lungs: COPD: Mild scatte red emphys silver. Fibros is: Mild scatte red fibros is. Lymph nodes: No medias tinal adenop athy by size criter ia. Limite d evalua tion for hilar adenop athy in the settin g of noncon trast techni que. Scatta red bilate ral hilar and medias tinal calcif ied lymph nodes. Other: Modera te reyes ry artery calcif icatio n. Cholec ystect shantel. Scatte red spleni c calcif ied granul omas. IMPRES JACOBY: No suspic ious pulmon talon nodula rity. Lung-R ADS Assess ment Catego ry: 1 - Negati ve. No nodule s or defini tely benign nodule s. Contin ue annual screen ing with low dose CT in 12 months . PAGE 1 Signed Report (KARLA NUISMAEL) [facility] Name: ROYCE BARTH [facility] Phys: Shelby wright MD, [place] [address] : 1960 Age: 64 Sex: F Acct: [id number] Loc: G.CT PHONE #: Exam Date: 2024 Status : DEP CLI FAX #: Rad# [id number] Unit# [id number] Admit Date: 2024 EXAMS: CPT CODE: [id number] [id number] CT CHEST LDCT LUNG SCREEN G0297 Full Lung-R ADS 2021 summar y docume nt publis hed Novemb er 2021 can be found at https: //www. [email or web address].or [email or web address] [email or web address]/AC R/File s/RADS /Lung- RADS/L jenifer-RA 2.p f Electr onical ly signed by: Cassandra gilliam MD 2024 12:44 PM EDT RP Workst ation: SEALWR [id number] Electr onical ly Signed by CASSANDRA GILLIAM MD on 2024 at 1238 Report ed and signed by: CASSANDRA BATES MD CC: Alfred wright M.D.; Irwin Oconnell APRN Dictat ed Date/T robbi: 2024 (1238) Techno logist : CARMINE Levine; ASIM BELLAM Y Transc ribed Date/T robbi: 2024 (1238) Transc riptio nist: DR.IND BARRIENTOS Electr onic Signat ure Date/T robbi: 2024 (1238) Printe d Date/T robbi: 2024 (0714) BATCH NO: N/A PAGE 2 Signed Report CC'ed Logic: Orderi ng Provid er: SHELBY LAWSONRE Y Attend ing Provid er: SHELBY LAWSONRE Y Referr ing Provid er: SHELBY LAWSONRE Y Consul ting Provid er: MIRIAM [address] [place] [address] , [place], [address], 11/29/2024 07:52:56 12/14/19 25 11/20/2024 LDCT, chest , for lung cance r scree gilles No observ ation record ed. Coalgood (Centralized Scheduling) [address] [place] [address] [place], [address], 12/13/2024 14:54:22 Result Notes None recorded. Problems Name Problem SNOMED Code Status Onset Date Resolution Date Notes Provider Name and Address Organization Details Recorded Time Chronic obstructive pulmonary disease 15136799 Active 2022 Luis Vincent MD [address] [facility] [place] [address], [place], [address] [place] [address] & [place] 3 04:12:31 Pulmonary emphysema 07466660 Active 2022 Luis Vincent MD [address] [place] [address],[address], [place], [address], [facility] & [place] 3 04:12:35 Obstructive sleep apnea syndrome 58354131 Active 2022 Luis Vincent MD [address] [place] [address],[address] [place] [address], [address], [facility] & [place] 3 04:12:40 Nodule of lung 193265958 Active 2022 Luis Vincent MD [address] [place] [address],[address], [place], [address], [facility] & [place] 3 03:51:42 Seasonal allergy 346470741 Active 2024 [facility], [facility] & [place] 5 12:57:45 Problem Notes None recorded. Procedures Surgical History Date Name Laterality Status Provider Name and Address Organization Details Recorded Time laparoscopic cholecystectomy completed [facility] & [place] 11/16/2022 11:15:41 delivery completed [facility] & [place] 11/16/2022 11:15:53 [facility] & [place] 11/16/2022 11:16:15 Imaging Results None recorded. Procedure Notes None recorded. Medical Equipment None Reported. Allergies No known drug allergies Medications Name Sig Start Date Stop Date Status Note LastModified by Organization Details LastModified Time nystatin 100,000 unit/mL oral suspension 11/28 completed Not Available Not Available Not Available ipratropium 0.5 mg-albutero l 3 mg (2.5 mg base)/3 mL nebulizatio n soln INHALE THREE (3) ML EVERY FOUR (4) HOURS BY NEBULIZAT ION ROUTE NEEDED FOR 90 DAYS. active Not Available Not Available No t Available albuterol sulfate 2.5 mg/3 mL (0.083 %) solution for nebulizatio n INHALE THE CONTENTS OF 1 VIAL VIA NEBULIZER EVERY 4 HOURS NEEDED active Not Available Not Available No t Available citalopram 40 mg tablet TAKE 1 TABLET DAILY active Not Available Not Available No t Available azithromyci n 250 mg tablet 11/16 completed Not Available Not Available Not Available prednisone 20 mg tablet TAKE 1 TABLET BY MOUTH TWICE DAILY FOR 5 DAYS active Not Available Not Available No t Available metoprolol succinate ER 100 mg tablet,exte nded release 24 hr TAKE 1 TABLET BY MOUTH ONCE DAILY active Not Available Not Available No t Available tramadol 50 mg tablet TAKE 1 TABLET 3 TIMES DAILYAS NEEDED active Not Available Not Available No t Available estradiol 1 mg tablet TAKE 1 TABLET DAILY active Not Available Not Available No t Available amlodipine 5 mg-benazepr il 10 mg capsule TAKE 1 CAPSULE BY MOUTH ONCE DAILY 11/13 completed Not Available Not Available Not Available ropinirole 0.25 mg tablet TAKE 1 TABLET AT BEDTIME active Not Available Not Available No t Available cephalexin 500 mg capsule TAKE 1 CAPSULE BY MOUTH TWICE DAILY FOR 10 DAYS 05/24 completed Not Available Not Available Not Available omeprazole 20 mg capsule,del ayed release TAKE 1 CAPSULE DAILY active Not Available Not Available No t Available pravastatin 20 mg tablet Take 1 tablet every day by oral route for 90 days. 11/16 completed Not Available Not Available Not Available mupirocin 2 % topical ointment APPLY OINTMENT TOPICALLY TO AFFECTED AREA THREE TIMES DAILY 11/28 completed Not Available Not Available Not Available triamterene 75 mg-hydrochl orothiazide 50 mg tablet TAKE 1 TABLET DAILY active Not Available Not Available No t Available albuterol sulfate HFA 90 mcg/actuati on aerosol inhaler INHALE TWO (2) PUFFS EVERY FOUR (4) HOURS BY INHALATIO N ROUTE NEEDED active Not Available Not Available No t Available fluticasone propionate 50 mcg/actuati on nasal spray,suspe nsion SPRAY ONE (1) SPRAY BY INTRANASA L ROUTE IN EACH NARE EVERY NIGHT AT BEDTIME active Not Available Not Available No t Available cyclobenzap rine 5 mg tablet TAKE 1 TABLET BY MOUTH ONCE DAILY NEEDED active Not Available Not Available No t Available rosuvastati n 40 mg tablet TAKE 1 TABLET DAILY active Not Available Not Available No t Available ClearLax 17 gram/dose oral powder MIX 17 GRAMS OF POWDER IN 8 OUNCES OF LIQUID AND DRINK ONCE DAILY active Not Available Not Available No t Available Myrbetriq 25 mg tablet,exte nded release TAKE 1 TABLET DAILY active Not Available Not Available No t Available metoprolol tartrate 75 mg tablet TAKE 1 TABLET TWICE A DAY active Not Available Not Available No t Available Vitals Date Recorded Oxygen saturation Oxygen saturation in Arterial blood by Pulse oximetry Heart rate Provider Name and Address Organization Details Last Updated DateTime 09/28/2023 98 % 98 % 67 /min Luis Vincent MD [address] [place] [address],[address], [place], [address], [place] - [facility] & [place] 09/28/2023 11:41:21 Date Recorded Body height Body mass index (BMI) Body weight Respiratory rate Systolic And Diastolic Provider Name and Address Organization Details Last Updated DateTime 09/28/2023 162.56 cm 31.3 kg/m2 17973.9 7 g 12 /min 120/68 mm[Hg] Crystal Earlywine [place] - [facility] & [place] 4 11:23:11 Date Recorded Oxygen saturation Oxygen saturation in Arterial blood by Pulse oximetry Heart rate Respiratory rate Systolic And Diastolic Provider Name and Address Organization Details Last Updated DateTime 4 97 % 97 % 65 /min 14 /min 110/64 mm[Hg] Luis Vincent MD [address] [place] [address],[address], [place], [address], [place] - [facility] & [place] 4 10:48:37 Date Recorded Body height Body mass index (BMI) Body weight Provider Name and Address Organization Details Last Updated DateTime 11/29/2023 162.56 cm 31 kg/m2 46138.78 g Ana COLEMAN - L PNT [facility] & [place] 11/29/2023 10:34:35 Date Recorded Heart rate Provider Name an d Address Organization Details Last Updated DateTime 12/13/2024 67 /min Luis henson MD [address] [place] [address],[address], [place], [address], [place] - [facility] & [place] 12/13/2024 09:43:33 Date Recorded Body height Body mass index (BMI) Body weight Oxygen saturation Oxygen saturation in Arterial blood by Pulse oximetry Respiratory rate Systolic And Diastolic Provider Name and Address Organization Details Last Updated DateTime 5 162.56 cm 29.5 kg/m2 31192.8 9 g 97 % 97 % 14 /min 124/78 mm[Hg] Rebecca COLEMAN LPNT [facility] & [place] 5 09:40:00 Date Recorded Oxygen saturation Oxygen saturation in Arterial blood by Pulse oximetry Respiratory rate Provider Name and Address Organization Details Last Updated DateTime 05/24/2023 97 % 97 % 14 /min Luis Vincent MD [facility] [employer] [facility],[address], [place], [address] , [facility] & [place] 05/24/2023 10:07:00 Date Recorded Body height Body mass index (BMI) Body weight Heart rate Systolic And Diastolic Provider Name and Address Organization Details Last Updated DateTime 05/24/2023 162.56 cm 32.4 kg/m2 30623.96 g 66 /min 124/68 mm[Hg] Rebecca COLEMAN [facility] & [place] 3 10:04:03 Date Recorded Oxygen saturation Oxygen saturation in Arterial blood by Pulse oximetry Provider Name and Address Organization Details Last Updated DateTime 07/10/2024 98 % 98 % Luis Vincent MD [facility] [employer] [facility],[address], [place], [address], JARED [facility]ONNT [facility] & [place] 07/10/2024 10:32:09 Date Recorded Body height Body mass index (BMI) Body weight Body temperature Heart rate Respiratory rate Systolic And Diastolic Provider Name and Address Organization Details Last Updated DateTime 4 162.56 cm 31.6 kg/m2 56503 g 98.4 [degF] 65 /min 12 /min 124/68 mm[Hg] Rebecca COLEMAN LPNT [facility] & [place] 4 10:24:53 Social History Question Answer Notes LastModified by Organizat ion Details LastModified Time Tobacco Smoking Status Former Smoker 1 PPD x 30 years Rebecca Milton sharham, JARED - [facility]NT [facility] [place] 11/16/2022 11:15:15 Do You Have An Advance Directive? No Information not available 11/16/2022 Are You Blind Or Do You Have Difficulty Seeing? No Information not available 11/16/2022 When Did You Quit Smoking? 6-10yearssi diamond rette Quit 2016 Information not available 09/28/2023 What Was The Date Of Your Most Recent Tobacco Screening? 11/29/2023 [email or web address] Information not available 11/29/2023 What Is Your Current Pack Years? 30ormorepac ryans Information not available 09/28/2023 At What Age Did You Start Smoking Tobacco? 13 [email or web address] Information not available 11/29/2023 Sex: Unknown Functional Status Question Answer Note LastModified by Organizat ion Details LastModified Time Do you use any illicit or recreational drugs? No Information not available 11/16/2022 What is your exercise level? Moderate Information not available 09/28/2023 Mental Status None recorded. Family History Relationship Description Onset Age of this Age Resolved Age Notes LastModified by Organization Details LastModified Time Mother Emphysema Not avail able 11/16/2022 11:13:11 Mother Malignant neoplasm of lung Not available 11/07 11:13:29 Medical History Condition Response Depression Y COPD Y Lung Disease Y Obstructive Sleep Apnea Y Acid Reflux (GERD) Y High Cholesterol Y Hypertension Y Gynecological History Statement/Question Response Sexually Active? N Obstetrics History GPAL:G 0 P 0 0 0 0 Past Encounters Encounter ID Performer Location Encounter Start Date Encounter Closed Date Diagnosis/Indication Diagnosis SNOMED-CT Code Diagnosis ICD10 Code Diagnosis Note [id number] MD [facility] [address] [place] [address] 11/16/2022 10:58:43 11/16/2022 11:16:57 Chronic obstructive pulmonary disease 91062479 J44.9 Pulmonary emphysema 8743 3001 J43.9 Obstructiv e sleep apnea syndrome 59309806 G47.33 [id number] MD [facility] [address] [place] [address] 12/28/2022 10:02:40 12/28/2022 10:17:37 Chronic obstructive pulmonary disease 75637973 J44.9 Pulmonary emphysema 8743 3001 J43.9 Obstructiv e sleep apnea syndrome 71373322 G47.33 Nodule of lung 299162541 R91.1 [id number] MD [facility] [address] [place] [address] 8 05/24/2023 09:48:20 05/24/2023 10:01:02 Chronic obstructive pulmonary disease 08538842 J44.9 Pulmonary emphysema 8743 3001 J43.9 Obstructiv e sleep apnea syndrome 59091808 G47.33 Nodule of lung 892177245 R91.1 [id number] MD [facility] [address] [place], [place] [address] 09/28/2023 11:11:32 09/28/2023 11:36:08 Chronic obstructive pulmonary disease 27970453 J44.9 Pulmonary emphysema 8743 3001 J43.9 Obstructiv e sleep apnea syndrome 40173847 G47.33 Nodule of lung 189033862 R91.1 [id number] MD [facility] [address] [place] [address] 8 11/29/2023 10:10:20 11/29/2023 10:41:39 Chronic obstructive pulmonary disease 13893214 J44.9 Pulmonary emphysema 8743 3001 J43.9 Obstructiv e sleep apnea syndrome 94965423 G47.33 Nodule of lung 488378743 R91.1 [id number] MD [facility] [address] [place] [address] 8 07/10/2024 10:07:32 07/10/2024 10:39:09 Chronic obstructive pulmonary disease 54647085 J44.9 Pulmonary emphysema 8743 3001 J43.9 Obstructiv e sleep apnea syndrome 37609111 G47.33 [id number] MD TEZ [facility] [address] [facility] [address] [place] [address] 12/13/2024 09:16:18 12/13/2024 09:44:39 Chronic obstructive pulmonary disease 30088386 J44.9 Pulmonary emphysema 8743 3001 J43.9 Obstructiv e sleep apnea syndrome 36555364 G47.33 Health Concerns Section Related Observation LastModified by Organization Detai ls LastModified Time None Recorded Concern Status LastModified by Organization Details LastModified Time None Recorded Advance Directives Directive N: Payers Insurance Date Sequence Insurance Name Policy Number Policy Dias Covered Member ID Dias Member ID Guarantor Name 12/13/2024 1 [employer] [id number] Rogelio Galvez [id number] Rogelio Galvez 12/13/2024 1 [employer] (PPO) Rogelio Galvez [id number] Rogelio Galvez 07/10/2024 [employer] (MEDICARE REPLACEMENT/ADVA NTAGE - PPO) Rogelio Galvez [id number] Rogelio Galvez 07/10/2024 2 [facility] Rogelio Galvez [id number] Rogelio Galvez 07/10/2024 2 [facility] ADMINISTRATORS [facility] (MEDICARE SUPPLEMENT) Rogelio Galvez [id number] Rogelio Galvez 12/10/2024 [employer] (MEDICARE REPLACEMENT/ADVA NTAGE - PPO) Rogelio Galvez [id number] Rogelio Galvez 07/10/2024 2 [facility] (MEDICARE SUPPLEMENT) Rogelio Galvez [id number] Rogelio Galvez 07/10/2024 2 [employer] [place] (H[place]) Rogelio Galvez [id number] Rogelio Galvez 01/06/2025 2 MEDICAID-[facility] CHO[facility] - FFS/TRADITIONAL Rogelio Galvez [id number] Rogelio Galvez Notes Date Note Type Note Provider Name and Address Organization Details Recorded Time 05/24/2023 text/html 62-year-old fema le history of tobacco abuse, quit smoking in 2015. Dyspnea, timing with exertion, mild in severity, relieved with rest. Modified wells criteria of 0 again. [place] of 2. Quality and context sputum is clear, thin, mucousy rare. She denies fatigue, hypersomnia, sleep attacks, sleep paralysis, cataplexy, RLS, orthopnea, PND, cough, productive sputum, hemoptysis, pleurisy, chest pain or chest pressure. She was previously on modafinil, she has not needed this since she quit working. Thirty pack-year history of smoking quit in 2016. She is on duo nebs and albuterol. Patient does not get sleepy or fall asleep while driving, patient again was warned no driving motorized vehicles or operating machinery while fatigued, sleepy or drowsy , she voiced understanding. She voices no cardiopulmonary complaints, no GI complaints, and no neurologic complaints today. She uses her albuterol inhaler or nebulizer once a week. I went over most recent CT scan of chest in detail with the patient, I answered all her questions, she voiced understanding and she had no further questions.He does breathe very well through her nose, she wants to try a nasal mask with chin strap as needed. We will send order over to [employer] for a nasal pillow or standard nasal mask with chin strap as needed.CT SCAN CHEST DONE NOVEMBER 26, 2022 BELOW:Comparison: 10/30/2021 and 10/28/2020Findings:No enlarged mediastinal, hilar, or axillary nodes are identified. Multiple calcified mediastinal and hilarnodes, secondary to old granulomatous disease. Coronary artery calcifications, again noted. Heartsize is normal. No significant pericardial fluid/thickening. No pleural fluid. Monitoring device andsubcutaneous fat of the anterior chest along the left midline, again noted. Patient is status postcholecystectomy, as before.Lung window images again show mild emphysema. Stable mild biapical focal fibrosis. Mildsubsegmental atelectasis/focal fibrosis of the right middle lobe and lingula medially, again noted.Multiple calcified granulomas bilaterally, as before. Interval development of a 2 mm pulmonarynodule versus debris endobronchial in the left lower lobe on image #169. Mild serpentine scoliosis ofthe thoracic spine, again noted.IMPRESSION:1. Interval development of a 2 mm nodule in the left lower lobe.2. Mild emphysema.3. Low dose CT chest in one year is recommended.LRAD2 - BENIGN APPEARANCE OR [id number] - ANNUAL SCREENING IN 12 MONTHSTranscribed Date: 11/26/2022 1:25 PMTranscribed By: Bob PenningtonReported by: Bob PenningtonSigned by: Bob PenningtonDateSigned:11/26 1:25 PMCT SCAN OF CHEST DONE OCTOBER 30, 2021 BELOW:Comparison: 10/28/2020Findings:No enlarged mediastinal, hilar, or axillary nodes are identified. Multiple calcified mediastinal andbilateral hilar nodes, again noted, secondary to old granulomatous disease. Moderate coronaryartery calcifications, again noted. Heart size is normal. No significant pericardial fluid/thickening. Nopleural fluid. Cardiac monitoring device and subcutaneous fat of the anterior chest wall slightly leftof midline. Fatty infiltration of the partially visualized liver, roughly the same. Cholecystectomy,again noted.Lung images again show mild emphysema, stable. Stable mild biapical focal fibrosis. Multiplecalcified granulomas bilaterally, again noted. No significant noncalcified pulmonary nodules. Mildserpentine scoliosis, stable.IMPRESSION:1. No significant pulmonary nodules.2. Stable mild emphysema.3. Low dose CT chest in one year is recommended.LRAD1 - [id number] - ANNUAL SCREENING IN 12 MONTHSTranscribed Date: 10/30/2021 3:04 PMTranscribed By: Bob PenningtonRepshauned by: Ryder Penningtongned by: Melissa PenningtonteSigned:10/30 3:04 PM This note was completed using a dictation system. We do our best to minimize mistakes by this dictation system, but some dictation system mistakes cannot be identified. If something does not make sense and/ or appears in error please do not hesitate to contact our office. We can correct the record and/ or clarify for you.The patient was warned no driving motorized vehicles or operating heavy machinery while fatigued, sleepy or drowsy, the patient voiced understanding and she stated she would not.Patient was instructed to read the side effect package profile very carefully on all medications prescribed, and to stop medications immediately and go to ER if the patient has any problems, she voiced understanding. Patient was instructed to go over side effects /adverse effects / drug interactions with all of the prescribed and [id number] medications with a pharmacist, she again voiced understanding. The patient was instructed to go to ER if the patient does not improve or worsens, she again voiced understanding.Patient was warned if the patient does not follow up with the CT scan of chest as recommended, and follow-up with results of CT scan chest with me, this may result in future ill health, sickness, and even , she again voiced understanding.Patient instructed to follow-up with primary care provider and/or vocational technical education teacher immdediately for coronary artery calcifications, as this may increase cardiovascular risks that may result in immediate ill health, sickness, , she voiced understanding and states she will follow-up with her primary care provider and/or vocational technical education teacher. She states she saw vocational technical education teacher. I told patient her new lung nodule and other abnormalities noted on CT scan of chest 11/2022 could be infection, inflammation, cancer and/or other lung disorders, she voiced understanding and declines a CT of chest now and further workup presently, however she is in agreement to repeat a CT scan of chest in 1 year as per the radiologist recommendations.So oscar again wants no further workup regarding her new lung nodule and other abnormalities noted on most recent CT of the chest 11/2022, i.e. declines bronchoscopy, CT lung biopsy, and / or surgical resection. She is agreeable to repeat CT scan of chest in 1 year. She again declines a CT scan of chest in 6 months at my recommendation, she is agreeable to repeat CT scan of chest in [address]. [address] scan of chest in 1 year or November 2023 as per patient's request. Luis Vincent MD [address] [place] [address],[address], [place], [address], [place] - [facility] & [place] 05/24/2023 10:07:08 09/28/2023 text/html 63-year-old fema le history of tobacco abuse, she quit smoking in 2016.Dyspnea, timing with exertion, mild in severity, relieved with rest. Modified wells criteria of 0. [place] of 1. Quality and context sputum is clear, thin, mucousy rare. Denies fatigue, hypersomnia, sleep attacks, sleep paralysis, cataplexy, RLS, orthopnea, PND, cough, productive sputum, hemoptysis, pleurisy, chest pain or chest pressure. She was previously on modafinil, she has not needed this since she quit working. Thirty pack-year history of smoking quit in 2016. She is on duo nebs and albuterol. Patient does not get sleepy or fall asleep while driving, patient was again warned no driving motorized vehicles or operating machinery while fatigued, sleepy or drowsy , she again voiced understanding. She voices no cardiopulmonary complaints, no GI complaints, and no neurologic complaints today. She uses her albuterol inhaler or nebulizer once a week.She complains of thrush x 2 over 3 months. She has a full face mask. She is going to change management to a nasal mask with chin strap as needed. She has a So - Clean device she uses daily. We are going to get her chin strap, and she is going to use her nasal CPAP device. I went over most recent CT scan of chest in detail with the patient, I answered all her questions, she voiced understanding and she had no further questions.She does breathe very well through her nose, she wants to try a nasal mask with chin strap as needed. CT SCAN CHEST DONE NOVEMBER 26, 2022 BELOW:Comparison: 10/30/2021 and 10/28/2020Findings:No enlarged mediastinal, hilar, or axillary nodes are identified. Multiple calcified mediastinal and hilarnodes, secondary to old granulomatous disease. Coronary artery calcifications, again noted. Heartsize is normal. No significant pericardial fluid/thickening. No pleural fluid. Monitoring device andsubcutaneous fat of the anterior chest along the left midline, again noted. Patient is status postcholecystectomy, as before.Lung window images again show mild emphysema. Stable mild biapical focal fibrosis. Mildsubsegmental atelectasis/focal fibrosis of the right middle lobe and lingula medially, again noted.Multiple calcified granulomas bilaterally, as before. Interval development of a 2 mm pulmonarynodule versus debris endobronchial in the left lower lobe on image #169. Mild serpentine scoliosis ofthe thoracic spine, again noted.IMPRESSION:1. Interval development of a 2 mm nodule in the left lower lobe.2. Mild emphysema.3. Low dose CT chest in one year is recommended.LRAD2 - BENIGN APPEARANCE OR [id number] - ANNUAL SCREENING IN 12 MONTHSTranscribed Date: 11/26/2022 1:25 PMTranscribed By: Bob PenningtonReported by: Ryder Penningtongned by: Melissa PenningtonteSigned:11/26 1:[address] SCAN OF CHEST DONE OCTOBER 30, 2021 BELOW:Comparison: 10/28/2020Findings:No enlarged mediastinal, hilar, or axillary nodes are identified. Multiple calcified mediastinal andbilateral hilar nodes, again noted, secondary to old granulomatous disease. Moderate coronaryartery calcifications, again noted. Heart size is normal. No significant pericardial fluid/thickening. Nopleural fluid. Cardiac monitoring device and subcutaneous fat of the anterior chest wall slightly leftof midline. Fatty infiltration of the partially visualized liver, roughly the same. Cholecystectomy,again noted.Lung images again show mild emphysema, stable. Stable mild biapical focal fibrosis. Multiplecalcified granulomas bilaterally, again noted. No significant noncalcified pulmonary nodules. Mildserpentine scoliosis, stable.IMPRESSION:1. No significant pulmonary nodules.2. Stable mild emphysema.3. Low dose CT chest in one year is recommended.LRAD1 - [id number] - ANNUAL SCREENING IN 12 MONTHSTranscribed Date: 10/30/2021 3:04 PMTranscribed By: Sole Penningtoned by: Andre Pennington by: Melissa PenningtonteSigned:10/30 3:04 PM This note was completed using a dictation system. We do our best to minimize mistakes by this dictation system, but some dictation system mistakes cannot be identified. If something does not make sense and/ or appears in error please do not hesitate to contact our office. We can correct the record and/ or clarify for you.The patient was warned no driving motorized vehicles or operating heavy machinery while fatigued, sleepy or drowsy, the patient voiced understanding and she stated she would not.Patient was instructed to read the side effect package profile very carefully on all medications prescribed, and to stop medications immediately and go to ER if the patient has any problems, she voiced understanding. Patient was instructed to go over side effects /adverse effects / drug interactions with all of the prescribed and [id number] medications with a pharmacist, she again voiced understanding. The patient was instructed to go to ER if the patient does not improve or worsens, she again voiced understanding.Patient was warned if the patient does not follow up with the CT scan of chest as recommended, and follow-up with results of CT scan chest with me, this may result in future ill health, sickness, and even , she again voiced understanding.Patient instructed to follow-up with primary care provider and/or vocational technical education teacher immdediately for coronary artery calcifications, as this may increase cardiovascular risks that may result in immediate ill health, sickness, , she voiced understanding and states she will follow-up with her primary care provider and/or vocational technical education teacher. She states she saw vocational technical education teacher.I went over most recent CT scan of chest in detail with the patient, I answered all of the patient's questions, the patient voiced understanding and she had no further questions.I told patient her the new lung nodule and other abnormalities noted on CT scan of chest 11/2022 could be infection, inflammation, cancer and/or other lung disorders, she voiced understanding and declines a CT of chest now and further workup presently, however she is in agreement to repeat a CT scan of chest in 1 year or November 2023 as per the radiologist recommendations.So oscar again wants no further workup regarding her new lung nodule and other abnormalities noted on most recent CT of the chest 11/2022, i.e. declines bronchoscopy, CT lung biopsy, and/or surgical bisopsy/ resection. She is agreeable to a repeat CT scan of chest in 1 year. She again declined a CT scan of chest in 6 months at my recommendation, she is agreeable to repeat CT scan of chest in [address] scan of chest in 1 year or November 2023 as per the patient's request. Luis Vincent MD [address] [place] [address],[address], [place], [address], [place] - [place] - [place] & [place] 09/28/2023 11:43:47 11/29/2023 text/html 63-year-old fema le history of tobacco abuse, she quit smoking in 2016.Dyspnea, timing with exertion, and is mild in severity, relieved with rest. Modified wells criteria of 0. [place] of 1. Quality and context sputum is clear, thin, mucousy rare. She denies fatigue, hypersomnia, sleep attacks, sleep paralysis, cataplexy, RLS, orthopnea, PND, cough, productive sputum, hemoptysis, pleurisy, chest pain or chest pressure. She was previously on modafinil, she has not needed this since she quit working. Thirty pack-year history of smoking quit in 2016. She is on duo nebs and albuterol. Patient does not get sleepy or fall asleep while driving, patient again was warned no driving motorized vehicles or operating machinery while fatigued, sleepy or drowsy , she again today voiced understanding. She voices no cardiopulmonary complaints, no GI complaints, and no neurologic complaints today. She rarely uses her albuterol or duo nebs.Previous visit she was changed to a nasal mask with chin strap as needed.She voices no sleep-related or CPAP related issues.On her compliance report apnea plus hypopnea index of 8.8. She denies fatigue or hypersomnia, and she wakes up rested and refreshed. She states she has lost weight with some diet modificationI went over most recent CT scan of chest in detail with the patient, I answered all her questions, she voiced understanding and she had no further questions.She does breathe very well through her nose, she wanted to try a nasal mask with chin strap as needed. CT SCAN OF CHEST NOVEMBER 25, 2023:COMPARISON: 11/26/22 and older studies as necessaryFINDINGS: Low neck and axilla: No significant abnormalities.Heart/Me diastinum/roma: Three-vessel coronary artery calcification. No pathologic adenopathy.Aorta grossly unremarkableUpper abdomen and skeleton: Cholecystectomy. No aggressive osseous lesionsLungs: Mild emphysema. Multiple calcified granulomata as before. Chronic atelectasis right middlelobe and lingula. No pathologic pulmonary nodularity, infiltrate or effusion.IMPRESSION: Study detail limited by non-contrast low dose technique.1. Mild emphysema without pathologic pulmonary nodularity or acute disease.2. Interval resolution 2 mm nodule left lower lobe.*Recommend follow-up LDCT in 12 months.LRAD1 - [id number] - ANNUAL SCREENING IN 12 MONTHSCommunication: Per this written report.NOTE: Any incidentally noted liver lesions equal to or less than 5 mm, cystic lesions in the kidneysless than 1 cm, and/or adrenal lesions equal to or less than 1 cm, generally are considered highlylikely to be benign and no additional evaluation is recommended, unless specificallyThis report is generated using voice recognition computer software. Inadvertent errors may haveoccurred while dictating report. Common sense approach is appreciated and do not hesitate to callfor clarification when necessary.Transcribed Date: 11/25/2023 11:59 AMTranscribed By: Richard MorganReported by: Richard MorganSigned by: Richard MorganDateSigned:11/24 11:59AMThank you for referring to [facility] SCAN CHEST DONE NOVEMBER 26, 2022 BELOW:Comparison: 10/30/2021 and 10/28/2020Findings:No enlarged mediastinal, hilar, or axillary nodes are identified. Multiple calcified mediastinal and hilarnodes, secondary to old granulomatous disease. Coronary artery calcifications, again noted. Heartsize is normal. No significant pericardial fluid/thickening. No pleural fluid. Monitoring device andsubcutaneous fat of the anterior chest along the left midline, again noted. Patient is status postcholecystectomy, as before.Lung window images again show mild emphysema. Stable mild biapical focal fibrosis. Mildsubsegmental atelectasis/focal fibrosis of the right middle lobe and lingula medially, again noted.Multiple calcified granulomas bilaterally, as before. Interval development of a 2 mm pulmonarynodule versus debris endobronchial in the left lower lobe on image #169. Mild serpentine scoliosis ofthe thoracic spine, again noted.IMPRESSION:1. Interval development of a 2 mm nodule in the left lower lobe.2. Mild emphysema.3. Low dose CT chest in one year is recommended.LRAD2 - BENIGN APPEARANCE OR [id number] - ANNUAL SCREENING IN 12 MONTHSTranscribed Date: 11/26/2022 1:25 PMTranscribed By: Bob PenningtonReported by: Bob PenningtonSigned by: Bob PenningtonDateSigned:11/26 1:[address] SCAN OF CHEST DONE OCTOBER 30, 2021 BELOW:Comparison: 10/28/2020Findings:No enlarged mediastinal, hilar, or axillary nodes are identified. Multiple calcified mediastinal andbilateral hilar nodes, again noted, secondary to old granulomatous disease. Moderate coronaryartery calcifications, again noted. Heart size is normal. No significant pericardial fluid/thickening. Nopleural fluid. Cardiac monitoring device and subcutaneous fat of the anterior chest wall slightly leftof midline. Fatty infiltration of the partially visualized liver, roughly the same. Cholecystectomy,again noted.Lung images again show mild emphysema, stable. Stable mild biapical focal fibrosis. Multiplecalcified granulomas bilaterally, again noted. No significant noncalcified pulmonary nodules. Mildserpentine scoliosis, stable.IMPRESSION:1. No significant pulmonary nodules.2. Stable mild emphysema.3. Low dose CT chest in one year is recommended.LRAD1 - [id number] - ANNUAL SCREENING IN 12 MONTHSTranscribed Date: 10/30/2021 3:04 PMTranscribed By: Bob PenningtonReported by: Bob PenningtonSigned by: Bob PenningtonDateSigned:10/30 3:04 PM This note was completed using a dictation system. We do our best to minimize mistakes by this dictation system, but some dictation system mistakes cannot be identified. If something does not make sense and/ or appears in error please do not hesitate to contact our office. We can correct the record and/ or clarify for you.The patient was warned no driving motorized vehicles or operating heavy machinery while fatigued, sleepy or drowsy, the patient voiced understanding and she stated she would not.Patient was instructed to read the side effect package profile very carefully on all medications prescribed, and to stop medications immediately and go to ER if the patient has any problems, she voiced understanding. Patient was instructed to go over side effects /adverse effects / drug interactions with all of the prescribed and [id number] medications with a pharmacist, she again voiced understanding. The patient was instructed to go to ER if the patient does not improve or worsens, she again voiced understanding.Patient was warned if the patient does not follow up with the CT scan of chest as recommended, and follow-up with results of CT scan chest with me, this may result in future ill health, sickness, and even , she again voiced understanding.Patient instructed to follow-up with primary care provider and/or vocational technical education teacher immediately for coronary artery calcifications, as this may increase cardiovascular risks that may result in immediate ill health, sickness, , she voiced understanding and states she will follow-up with her primary care provider and/or vocational technical education teacher. She states she sees Dr Sagastume/vocational technical education teacher.I went over most recent CT scan of chest November 2023 in detail with the patient, I answered all of the patient's questions, the patient voiced understanding and she had no further questions.Patient again wants no further workup regarding her abnormalities noted on most recent CT of the chest 11/2023, she declines bronchoscopy, CT lung biopsy, and/or surgical bisopsy/ resection. She is agreeable to a repeat CT scan of chest in 1 year or November 2024. Luis Vincent MD [address] [place] [address],[address], [place], [address], [place] - [facility] - [place] & [place] 11/29/2023 10:53:00 07/10/2024 text/html 63-year-old femgonzález le history of tobacco abuse, she quit smoking in 2016, here for follow up.Dyspnea, timing with exertion, and is mild in severity, relieved with rest. Modified wells criteria of 0. [place] of 2. Quality and context sputum is clear, thin, mucousy rare.She again denies fatigue, EDS, hypersomnia, sleep attacks, sleep paralysis, cataplexy, RLS, orthopnea, PND, cough, productive sputum, hemoptysis, pleurisy, chest pain or chest pressure. She was previously on modafinil, she has not needed this since she quit working.She does breathe very well through her nose on exam today.Thirty pack-year history of smoking quit in 2016. She is on duo nebs and albuterol. Patient does not get sleepy, fatigued, drowsy or fall asleep while driving, she again was warned no driving motorized vehicles or operating machinery while fatigued, sleepy or drowsy , she again voiced understanding. She complains of clear sinus drainage she thinks are secondary to allergies. I offered Claritin, Flonase nasal spray, saline irrigation, antibiotics if she worsens, she declines all of these. She states if she does not improve or worsens she will follow-up with her primary care provider Dr Oconnell.She voices no cardiopulmonary complaints, no GI complaints, and no neurologic complaints today. She rarely uses her albuterol or duo nebs.Previous visit she was changed to a N20 nasal mask with chin strap as needed, which she prefers.She voices no sleep-related or CPAP related issues.On her compliance report apnea plus hypopnea index of 7.2. She denies fatigue or hypersomnia, and she wakes up rested and refreshed. She states she has lost weight with some diet modification CT SCAN OF CHEST NOVEMBER 25, 2023:COMPARISON: 11/26/22 and older studies as necessaryFINDINGS: Low neck and axilla: No significant abnormalities.Heart/Me diastinum/roma: Three-vessel coronary artery calcification. No pathologic adenopathy.Aorta grossly unremarkableUpper abdomen and skeleton: Cholecystectomy. No aggressive osseous lesionsLungs: Mild emphysema. Multiple calcified granulomata as before. Chronic atelectasis right middlelobe and lingula. No pathologic pulmonary nodularity, infiltrate or effusion.IMPRESSION: Study detail limited by non-contrast low dose technique.1. Mild emphysema without pathologic pulmonary nodularity or acute disease.2. Interval resolution 2 mm nodule left lower lobe.*Recommend follow-up LDCT in 12 months.LRAD1 - [id number] - ANNUAL SCREENING IN 12 MONTHSCommunication: Per this written report.NOTE: Any incidentally noted liver lesions equal to or less than 5 mm, cystic lesions in the kidneysless than 1 cm, and/or adrenal lesions equal to or less than 1 cm, generally are considered highlylikely to be benign and no additional evaluation is recommended, unless specificallyThis report is generated using voice recognition computer software. Inadvertent errors may haveoccurred while dictating report. Common sense approach is appreciated and do not hesitate to callfor clarification when necessary.Transcribed Date: 11/25/2023 11:59 AMTranscribed By: Richard MorganReported by: Richard MorganSigned by: Richard MorganDateSigned:11/24 11:59AMThank you for referring to [facility] SCAN CHEST DONE NOVEMBER 26, 2022 BELOW:Comparison: 10/30/2021 and 10/28/2020Findings:No enlarged mediastinal, hilar, or axillary nodes are identified. Multiple calcified mediastinal and hilarnodes, secondary to old granulomatous disease. Coronary artery calcifications, again noted. Heartsize is normal. No significant pericardial fluid/thickening. No pleural fluid. Monitoring device andsubcutaneous fat of the anterior chest along the left midline, again noted. Patient is status postcholecystectomy, as before.Lung window images again show mild emphysema. Stable mild biapical focal fibrosis. Mildsubsegmental atelectasis/focal fibrosis of the right middle lobe and lingula medially, again noted.Multiple calcified granulomas bilaterally, as before. Interval development of a 2 mm pulmonarynodule versus debris endobronchial in the left lower lobe on image #169. Mild serpentine scoliosis ofthe thoracic spine, again noted.IMPRESSION:1. Interval development of a 2 mm nodule in the left lower lobe.2. Mild emphysema.3. Low dose CT chest in one year is recommended.LRAD2 - BENIGN APPEARANCE OR [id number] - ANNUAL SCREENING IN 12 MONTHSTranscribed Date: 11/26/2022 1:25 PMTranscribed By: Sole Penningtoned by: Andre Pennington by: Melissa PenningtonteSigned:11/26 1:[address] SCAN OF CHEST DONE OCTOBER 30, 2021 BELOW:Comparison: 10/28/2020Findings:No enlarged mediastinal, hilar, or axillary nodes are identified. Multiple calcified mediastinal andbilateral hilar nodes, again noted, secondary to old granulomatous disease. Moderate coronaryartery calcifications, again noted. Heart size is normal. No significant pericardial fluid/thickening. Nopleural fluid. Cardiac monitoring device and subcutaneous fat of the anterior chest wall slightly leftof midline. Fatty infiltration of the partially visualized liver, roughly the same. Cholecystectomy,again noted.Lung images again show mild emphysema, stable. Stable mild biapical focal fibrosis. Multiplecalcified granulomas bilaterally, again noted. No significant noncalcified pulmonary nodules. Mildserpentine scoliosis, stable.IMPRESSION:1. No significant pulmonary nodules.2. Stable mild emphysema.3. Low dose CT chest in one year is recommended.LRAD1 - [id number] - ANNUAL SCREENING IN 12 MONTHSTranscribed Date: 10/30/2021 3:04 PMTranscribed By: Sole Penningtoned by: Andre Pennington by: Mango Penningtonigned:10/30 3:04 PM This note was completed using a dictation system. We do our best to minimize mistakes by this dictation system, but some dictation system mistakes cannot be identified. If something does not make sense and/ or appears in error please do not hesitate to contact our office. We can correct the record and/ or clarify for you.The patient was warned no driving motorized vehicles or operating heavy machinery while fatigued, sleepy or drowsy, the patient voiced understanding and she stated she would not.Patient was instructed to read the side effect package profile very carefully on all medications prescribed, and to stop medications immediately and go to ER if the patient has any problems, she voiced understanding. Patient was instructed to go over side effects /adverse effects / drug interactions with all of the prescribed and [id number] medications with a pharmacist, she again voiced understanding. The patient was instructed to go to ER if the patient does not improve or worsens, she again voiced understanding.Patient was warned if the patient does not follow up with the CT scan of chest as recommended, and follow-up with results of CT scan chest with me, this may result in future ill health, sickness, and even , she again voiced understanding.Patient instructed to follow-up with primary care provider and/or vocational technical education teacher immediately for coronary artery calcifications, as this may increase cardiovascular risks that may result in immediate ill health, sickness, , she voiced understanding and again she states she will follow-up with her primary care provider and/or vocational technical education teacher. She states she sees Dr Sagastume/vocational technical education teacher.I went over most recent CT scan of chest November 2023 in detail with the patient, I answered all of the patient's questions, the patient voiced understanding and she had no further questions.She wants no further workup regarding her abnormalities noted on most recent CT of the chest 11/2023, she declines bronchoscopy, CT lung biopsy, and/or surgical bisopsy/ resection. She is agreeable to a repeat CT scan of chest in 1 year or November 2024. Luis Vincent MD [address], [place], [address], [facility] [place] [facility] [place] 07/10/2024 10:34:32 12/13/2024 text/html 64-year-old fema le history of tobacco abuse, she quit smoking in 2016, here for follow up.she rarely uses her albuterol inhaler or her nebulizers. Apnea plus hypopnea index of 7.0 on her compliance report. She voices no CPAP or sleep-related complaints. Wakes up rested and refreshed. No fatigue, EDS or hypersomnia.She called the office in November with complaints of nasal congestion difficulty tolerating CPAP. I recommended adding saline irrigation before bedtime, Flonase, and she wanted to switch to a full face mask , see patient case.She knows not to take albuterol nebulizer with her duo nebs, as apparently she has both. We are going to call the pharmacy and cancel her albuterol nebulizer prescription as she is on duo nebs. She states she never takes her albuterol inhaler or nebulizer but she has them available if she needs them. Dyspnea, timing with exertion, and is minimal in severity, relieved with rest. Modified wells criteria of 0. [place] of 0. Quality and context sputum is clear, thin, mucousy rare.She again denies fatigue, EDS, hypersomnia, sleep attacks, sleep paralysis, cataplexy, RLS, orthopnea, PND, cough, productive sputum, shortness of breath, hemoptysis, pleurisy, chest pain or chest pressure. She was previously on modafinil, she has not needed this since she quit working.She does breathe very well through her nose on exam today.Thirty pack-year history of smoking quit in 2016. She is on duo nebs and albuterol. Patient does not get sleepy, fatigued, drowsy or fall asleep while driving, she again today was warned no driving motorized vehicles or operating machinery while fatigued, sleepy or drowsy , she again voiced understanding. She complains of clear sinus drainage she thinks are secondary to allergies.She again voices no cardiopulmonary complaints, no GI complaints, and no neurologic complaints today. She rarely uses her albuterol or duo nebs.She voices no sleep-related or CPAP related issues.She denies fatigue, EDS or hypersomnia, and she wakes up rested and refreshed. She states she has lost weight with some diet modification CT SCAN OF CHEST NOVEMBER 2024:Report DetailsPatient Name: Joceline GALVEZureDate:11/07Gender: F of : 1960 Age 64 yearsPatient ID: [id number]: CT CHEST LDCT LUNG SCREENReferringPhysici an:Gretchen Vincent TextCT LOW DOSE LUNG CANCER SCREENINGIndication: Annual screening.Comparison: November 25, 2023.Technique: A low dose CT of the chest without intravenous contrast was performed andreformatted in the axial plane at 1 - 1.25 mm section thickness, as per the lung cancer screeningprotocol. Images were reformatted into axial 5 mm images at 5 mm interval and axial 8 mm MIPimages at 1 mm interval. Additional coronal and sagittal reconstructions were included. Radiationdose lowering technique, automated exposure control, utilized.Findings:Exam parameters/ diagnostic quality: SatisfactoryLung Nodules:None.Lungs:DIRECTOR ENVIRONMENTAL D: Mild scattered emphysema.Fibrosis: Mild scattered fibrosis.Lymph nodes: No mediastinal adenopathy by size criteria. Limited evaluation for hilar adenopathy inthe setting of noncontrast technique. Scattared bilateral hilar and mediastinal calcified lymphnodes.Other: Moderate coronary artery calcification. Cholecystectomy. Scattered splenic calcifiedgranulomas.IM PRESSION: Name: ROGELIO GALVEZ Account #:No suspicious pulmonary nodularity.Lung-RADS Assessment Category: 1 - Negative.No nodules or definitely benign nodules.Continue annual screening with low dose CT in 12 months.Full Lung-RADS 2021 summary document published June 2022 can be found [email or web address] signed by: Roosevelt Cortes MD 11/21/2024 12:44 PM EDT HYTranscribed Date: 11/21/2024 12:38 PMTranscribed By:Reported by: Cristina CORTES by: Olinda CORTESigned:11/07 12:38 CT SCAN OF CHEST NOVEMBER 25, 2023:COMPARISON: 11/26/22 and older studies as necessaryFINDINGS: Low neck and axilla: No significant abnormalities.Heart/Me diastinum/roma: Three-vessel coronary artery calcification. No pathologic adenopathy.Aorta grossly unremarkableUpper abdomen and skeleton: Cholecystectomy. No aggressive osseous lesionsLungs: Mild emphysema. Multiple calcified granulomata as before. Chronic atelectasis right middlelobe and lingula. No pathologic pulmonary nodularity, infiltrate or effusion.IMPRESSION: Study detail limited by non-contrast low dose technique.1. Mild emphysema without pathologic pulmonary nodularity or acute disease.2. Interval resolution 2 mm nodule left lower lobe.*Recommend follow-up LDCT in 12 months.LRAD1 - [id number] - ANNUAL SCREENING IN 12 MONTHSCommunication: Per this written report.NOTE: Any incidentally noted liver lesions equal to or less than 5 mm, cystic lesions in the kidneysless than 1 cm, and/or adrenal lesions equal to or less than 1 cm, generally are considered highlylikely to be benign and no additional evaluation is recommended, unless specificallyThis report is generated using voice recognition computer software. Inadvertent errors may haveoccurred while dictating report. Common sense approach is appreciated and do not hesitate to callfor clarification when necessary.Transcribed Date: 11/25/2023 11:59 AMTranscribed By: Richard MorganReported by: Richard MorganSigned by: Richard MorganDateSigned:11/24 11:59AMThank you for referring to [facility]. CT SCAN CHEST DONE NOVEMBER 26, 2022 BELOW:Comparison: 10/30/2021 and 10/28/2020Findings:No enlarged mediastinal, hilar, or axillary nodes are identified. Multiple calcified mediastinal and hilarnodes, secondary to old granulomatous disease. Coronary artery calcifications, again noted. Heartsize is normal. No significant pericardial fluid/thickening. No pleural fluid. Monitoring device andsubcutaneous fat of the anterior chest along the left midline, again noted. Patient is status postcholecystectomy, as before.Lung window images again show mild emphysema. Stable mild biapical focal fibrosis. Mildsubsegmental atelectasis/focal fibrosis of the right middle lobe and lingula medially, again noted.Multiple calcified granulomas bilaterally, as before. Interval development of a 2 mm pulmonarynodule versus debris endobronchial in the left lower lobe on image #169. Mild serpentine scoliosis ofthe thoracic spine, again noted.IMPRESSION:1. Interval development of a 2 mm nodule in the left lower lobe.2. Mild emphysema.3. Low dose CT chest in one year is recommended.LRAD2 - BENIGN APPEARANCE OR [id number] - ANNUAL SCREENING IN 12 MONTHSTranscribed Date: 11/26/2022 1:25 PMTranscribed By: Bob PenningtonReported by: Bob PenningtonSigned by: Melissa PenningtonteSigned:11/26 1:[address] SCAN OF CHEST DONE OCTOBER 30, 2021 BELOW:Comparison: 10/28/2020Findings:No enlarged mediastinal, hilar, or axillary nodes are identified. Multiple calcified mediastinal andbilateral hilar nodes, again noted, secondary to old granulomatous disease. Moderate coronaryartery calcifications, again noted. Heart size is normal. No significant pericardial fluid/thickening. Nopleural fluid. Cardiac monitoring device and subcutaneous fat of the anterior chest wall slightly leftof midline. Fatty infiltration of the partially visualized liver, roughly the same. Cholecystectomy,again noted.Lung images again show mild emphysema, stable. Stable mild biapical focal fibrosis. Multiplecalcified granulomas bilaterally, again noted. No significant noncalcified pulmonary nodules. Mildserpentine scoliosis, stable.IMPRESSION:1. No significant pulmonary nodules.2. Stable mild emphysema.3. Low dose CT chest in one year is recommended.LRAD1 - [id number] - ANNUAL SCREENING IN 12 MONTHSTranscribed Date: 10/30/2021 3:04 PMTranscribed By: Bob PenningtonRepshauned by: Ryder Penningtongnismael by: Melissa PenningtonteSigned:10/30 3:04 PM This note was completed using a dictation system. We do our best to minimize mistakes by this dictation system, but some dictation system mistakes cannot be identified. If something does not make sense and/ or appears in error please do not hesitate to contact our office. We can correct the record and/ or clarify for you.The patient was warned no driving motorized vehicles or operating heavy machinery while fatigued, sleepy or drowsy, she voiced understanding and she stated she would not.Patient was instructed to read the side effect package profile very carefully on all medications prescribed, and to stop medications immediately and go to ER if the patient has any problems, she voiced understanding. Patient was instructed to go over side effects /adverse effects / drug interactions with all of the prescribed and [id number] medications with a pharmacist, she again voiced understanding. The patient was instructed to go to ER if the patient does not improve or if she worsens, she again voiced understanding.I went over most recent CT scan of chest in detail with the patient, I answered all of the patient's questions, the patient voiced understanding and had no further questions or concerns. I gave the patient a copy of her most recent CT scan of chest to take with her.Patient was warned if the patient does not follow up with the CT scan of chest as recommended, and follow-up with results of CT scan chest with PCP or another shuttlecock assembler, this may result in future ill health, sickness, and even , she again voiced understanding.Patient instructed to follow-up with primary care provider and/or vocational technical education teacher immediately for coronary artery calcifications, as this may increase cardiovascular risks that may result in immediate ill health, sickness, , she voiced understanding and again she states she will follow-up with her primary care provider and/or vocational technical education teacher. She states she sees Dr Sagastume/vocational technical education teacher.I went over most recent CT scan of chest November 2024 in detail with the patient, I answered all of the patient's questions, the patient voiced understanding and she had no further questions.She wants no further workup regarding her abnormalities noted on most recent CT of the chest 11/2024, she declines bronchoscopy, CT lung biopsy, and/or surgical biopsy/ resection. She is agreeable to a repeat CT scan of chest in 1 year or November 2025 , as per radiologist recommendations.I told the patient I will be retiring December 2024, the patient voiced understanding.The patient was instructed to follow-up with their primary care provider and/or a shuttlecock assembler/sleep physician for all their future pulmonary needs/ issues/meds and all of their sleep needs/issues/meds, the patient voiced understanding. The patient was also instructed to follow-up with their primary care provider and/ or a shuttlecock assembler for all recommended future CT scans of the chest, the patient voiced understanding. I told the patient their lack of follow-up with recommended future CT scans of chest could result in future ill health, sickness, , the patient again voiced understanding.She voiced understanding of all the above. Luis Vincent MD [address] [facility],[address], [place], [address], [facility] [place] [facility] [place] 12/13/2024 09:49:29 OBGyn Episode No OBEpisode recorded.
--- OUTSIDE RECORDS SUMMARY | 2025-02-23 16:38 | XMS_ITS | Continuity of Care Document ---
Author Organization [place] [facility] Address [address] [place] [address] Care Team Providers Care Knitter Wire Mesh Name Role Phone EMORY PINEDA Primary Care Provider CAM Zarate Hadoop Application Developer CHARITO RATLIFF Hot Knife Foxing Cutter [phone] GERARDO WINSLOW Charge Operator Assessment Encounter Date Assessment Date Assessment LastModified by Organization Details LastModified Time 01/16/2025 01/16/2025 Patient presente d to office today for their Medicare Annual Wellness Visit. Education was provided on healthy nutrition, including a diet rich in fruits and vegetables, minimizing simple carbohydrates, salt, and saturated fats. Encouraged regular cardiovascular exercise such as walking at least 30 minutes daily, 5 times per week. Emphasized preventive health measures and educated pt on fall prevention and community-based lifestyle interventions to help reduce health risks and promote healthy living. Medicare Preventive Services Check List reviewed and printed for patient. [email or web address] Not available 01/16/2025 09:19:43 Plan of Treatment Reminders Order Date Submit Date Provider Last Modified By Organization Details Last Modified Time Details Appointments Diabetic F/U 2024 08:40A M Emory Pineda APRN Not available Not available Not available Lab Hepatitis C IgG Ab, qual, serum 2024 025 [facility], [address], [place], [place], [address], 01/23/2025 04:04:59 Referral None recorded. Procedures None recorded. Surgeries None recorded. Imaging None recorded. Medication Orders Linzess 145 mcg capsule 2024 025 [facility], [facility], [place], [address], 01/16/2025 11:02:51 Myrbetriq 50 mg tablet,ex tended release 2024 025 [facility], [place], [address], 01/16/2025 11:02:51 Patient TargetsNo targets recorded. Patient Instructions Encounter Date Encounter Id Patient Instructions Last Modified By Organization Details Last Modified Time 01/16/2025 [id number] advance directives: care instructions efryman Not available 01/16/2025 11:02:44 learning about depression efryman Not available 01/16/2025 11:02:44 preventing falls : care instructions efryman Not available 01/16/2025 11:02:44 medicare preventive services guide efryman Not available 01/16/2025 11:02:44 Reason for Referral None Reported. Problems Name Problem SNOMED Code Status Onset Date Resolution Date Notes Provider Name and Address Organization Details Recorded Time Obstructive sleep apnea syndrome 20459879 Active Linsey Babin MD [address], [address], [place] - [facility] 9 07:27:00 Moderate chronic obstructive pulmonary disease 697484466 Active Linsey Babin MD [address], [address], [place] - [facility] 2 18:03:48 Pulmonary emphysema 36803151 Active Linsey Babin MD [address], [address], [place] - [facility] 2 18:03:48 Endometriosis (clinical) 715019011 Active Linsey Babin MD [address], [place], [address], [place] [facility] 2 18:03:48 Plantar fasciitis 798407885 Active Linsey Babin MD [address], [place], [address], [place] - [facility] 2 18:03:48 Prediabetes 935322929 Active 2015 Linsey Babin MD [address], [place], [address], [place] - [facility] 2 18:03:48 Restless legs 60593283 Active 2016 Linsey Babin MD [address], [place], [address], [place] [facility] 2 18:03:48 Chronic obstructive pulmonary disease 82466877 Active 2016 Linsey Babin MD [address], [place], [address], [place] [facility] 2 18:03:48 Generalized osteoarthritis 964078518 Active 2016 Linsey Babin MD [address], [place], [address], [place] [facility] 2 18:03:48 Mixed hyperlipidemia 853376336 Active 2018 Linsey Babin MD [address], [place], [address], [place] [facility] 2 18:03:48 Gastroesophage al reflux disease without esophagitis 834211858 Active 2018 Linsey Babin MD [address], [place], [address], [place] [facility] 2 18:03:48 Generalized anxiety disorder 13002515 Active 2018 Linsey Babin MD [address], [place], [address], [place] [facility] 2 18:03:48 Menopausal syndrome 548656655 Active 2018 Linsey Babin MD [address], [place], [address], [place] [facility] 2 18:03:48 Hypertensive disorder 10284191 Active 2019 Linsey Babin MD [address], [place], [address], [place] [facility] 2 18:03:48 Body mass index 30+ - obesity 815342245 Active 2021 Linsey Bbain MD [address], [place], [address], [place] - [facility] 2 18:03:48 Osteoarthritis 366893654 Active 2021 Linsey Babin MD [address], [place], [address], [place] - [facility] 2 18:03:48 Chronic pain 12183340 Active 2021 Dontino Pineda, [employer]ISON LIB[employer]ARIAN [address], [place], [address], [place] - [facility] 2 09:45:39 Hyperlipidemia 36211896 Active 2021 Emory Pineda, [employer]IAN [address], [place], [address], [place] - [facility] 2 09:32:08 Problem Notes None recorded. Procedures Surgical History Date Name Laterality Status Provider Name and Address Organization Details Recorded Time 01/17/20 25 Advance Care Planning completed Shabana Lara [place] - [facility] 01/16/2025 09:19:44 01/17/20 25 Functional Status Assessed completed Shabana Jane [place] - [facility] 01/16/2025 09:19:44 11/29/19 24 Advance Care Planning completed Ning Jerris [place] - [facility] 11/29/2023 08:33:43 11/29/19 24 Functional Status Assessed completed Ning Jerris [place] - [facility] 024 08:33:43 09/06/19 24 Date of Last Mammogram completed Ning [place] - [facility] 09/07/2023 10:37:32 03/31/20 22 Advance Care Planning completed Shabana Anguianoler [place] - [facility] 03/31/2022 08:51:12 03/31/20 22 Functional Status Assessed completed Shabana Lara [place] - [facility] 03/31/2022 08:51:12 03/23/20 17 Date of Last Colonoscopy completed Maya Burnett RN [address], [place], [address], [place] - [facility] 07/19/2019 15:24:37 07/25/20 14 Cholecystectomy, laparoscopic completed Ninggonzález [place]uth[place] - [facility] 03/16/2017 08:32:44 03/07/20 14 Most Recent Bone Density completed Ning [place] - [facility] 03/16/2017 08:33:44 09/28/19 13 Date of Last Pap Smear completed Shabana COLEMAN - [facility] 06/09/2023 11:49:59 12/16/19 12 Cardiac Cath completed Ning [place] - [facility] 03/2017 08:35:04 08/23/18 81 Hysterectomy completed Shabana COLEMAN - [facility] 01/16/2025 09:20:59 11/10/18 74 Caesarean Section completed Shabana COLEMAN - [facility] 01/16/2025 09:20:59 delivery completed Ning [place] - [facility] 03/16/2017 08:22:28 Orthopedic Surgery completed Aislinn COLEMAN - [facility] 07/08/2016 17:20:45 TVT completed Aislinn COLEMAN - [facility] 07/08/2016 17:21:01 Bladder irrigation tubing completed Aislinn COLEMAN - [facility] 07/08/2016 17:21:21 Hysterectomy completed Ning COLEMAN - [facility] 03/16/2017 11:09:41 Carpal tunnel surgery completed Ning Guthries J[place] - [facility] 03/16/2017 08:24:24 Imaging Results None recorded. Procedure Notes None recorded. Medical Equipment None Reported. Allergies Allergen ID Allergen Name Allergen Category Reaction Reaction Severity Criticality Documentation Date Start Date Code Code System Note Provider Name and Address Organization Details Recorded Time 74391 Medicinal product containin g tetracycl ine structure and acting as antibacte rial agent (product) medicatio n Not available Not available Not available 05/15/20162009 68401 1004 SNOMED Not Available [facility] 6 10:04:05 Medications Name Sig Start Date Stop Date Status Note LastModified by Organization Details LastModified Time Prescript ion - Clarifica tion active Not Available Not Available Not Available amoxicill in 500 mg capsule take 1 capsule (500 mg) by oral route every 12 hours for 10 days 10/25 completed amoxicil kat 500 mg oral capsule; Recorded Status: Recorded on: 08/31/19 14 11:17AM; Disconti nued Status: Disconti nued on: 10/26/19 14 8:57AM;U ser: gillisa; Est. Completi on: 09/10/19 14;Indic ation: Acute Bacteria l Sinusiti s - ([id number]);Prin jennifer: 08/31/19 14 Not Available Not Available Not Available promethaz ine-DM 6.25 mg-15 mg/5 mL oral syrup take 5 millilit ers by oral route every 4 hours as needed 10/25 completed prometha zine-DM 6.25-15 mg/5 mL oral syrup;Re corded Status: Recorded on: 08/16/19 14 9:33AM;D iscontin ued Status: Disconti nued on: 10/26/19 14 8:58AM;U ser: gillisa; Indicati on: Cough - (16.7566 00);Prin jennifer: 08/16/19 14 Not Available Not Available Not Available nystatin 100,000 unit/mL oral suspensio n TAKE 5 ML FOUR TIMES DAILY FOR 10 DAYS FOR THRUSH 11/28 completed Not Available Not Available Not Available prednison e 10 mg tablet 04/23 completed Not Available Not Available Not Available ipratropi um 0.5 mg-albute rol 3 mg (2.5 mg base)/3 mL nebulizat ion soln INHALE THREE (3) ML EVERY FOUR (4) HOURS BY NEBULIZA TION ROUTE NEEDED FOR 90 DAYS. active Not Available Not Available No t Available albuterol sulfate 2.5 mg/3 mL (0.083 %) solution for nebulizat ion INHALE THE CONTENTS OF 1 VIAL VIA NEBULIZE R EVERY 4 HOURS NEEDED active Not Available Not Available No t Available citalopra m 40 mg tablet TAKE 1 TABLET DAILY active Not Available Not Available No t Available azithromy nadeem 250 mg tablet TAKE 2 TABLETS (500 MG) BY ORAL ROUTE ONCE DAILY FOR 1 DAY THEN 1 TABLET (250 MG) BY ORAL ROUTE ONCE DAILY FOR 4 DAYS 05/11 completed Not Available Not Available Not Available aspirin 325 mg tablet take 1 tablet (325 mg) by oral route once daily for 30 days 10/25 completed aspirin 325 mg oral tablet;R ecorded Status: Recorded on: 04/25/20 10 3:31PM;D iscontin ued Status: Disconti nued on: 10/26/19 14 8:57AM;U ser: mayelaisa; Est. Completi on: 05/25/20 10 Not Available Not Available Not Available pravastat in 40 mg tablet take 1 tablet (40 mg) by oral route once daily 08/31 completed pravasta tin 40 mg oral tablet;R ecorded Status: Recorded on: 02/04/20 12 5:25PM;D iscontin ued Status: Disconti nued on: 08/31/19 13 2:08PM;U ser: [email or web address]; Est. Completi on: 08/02/20 12;Print ed: 02/04/20 12 Not Available Not Available Not Available clarithro mycin 500 mg tablet 04/23 completed Not Available Not Available Not Available hydrocodo ne 5 mg-acetam inophen 325 mg tablet TAKE ONE (1) TABLET BY MOUTH EVERY 6-8 HOURS NEEDED 04/22 completed Not Available Not Available Not Available meloxicam 15 mg tablet take 1 tablet by oral route daily 01/13 completed Not Available Not Available Not Available metronida zole 0.75 % (37.5 mg/5 gram) vaginal gel insert 1 applicat orful (37.5 mg) by vaginal route once daily at bedtime for 5 days 08/14 completed metronid azole 0.75 % vaginal gel;Eliot rded Status: Recorded on: 09/28/19 13 5:47PM;D iscontin ued Status: Disconti nued on: 08/14/19 14 11:13AM; User: vaughn Est. Completi on: 10/03/19 13;Indic ation: Bacteria l Vaginosi s - (10.6169 00);Prin jennifer: 09/28/19 13 Not Available Not Available Not Available prednison e 20 mg tablet TAKE 1 TABLET BY MOUTH TWICE DAILY FOR 5 DAYS 12/05 completed Not Available Not Available Not Available Prilosec 40 mg capsule,d elayed release take 1 capsule (40 mg) by oral route once daily before a meal for 30 days 08/03 completed Prilosec 40 mg oral capsule, delayed release( /EC);R ecorded Status: Recorded on: 05/28/20 14 11:20AM; Disconti nued Status: Disconti nued on: 08/03/20 14 1:19PM;U ser: colin; Est. Completi on: 08/26/19 15;Print ed: 05/28/20 14 Not Available Not Available Not Available metoprolo l succinate ER 100 mg tablet,ex tended release 24 hr TAKE 1.5 TABLETs BY MOUTH ONCE DAILY active Not Available Not Available No t Available Anucort-H C 25 mg supposito ry insert 1 supposit ory by rectal route every other night 08/03 completed Anucort- HC 25 mg rectal supposit ory;Eliot rded Status: Recorded on: 11/04/19 14 9:42AM;D iscontin ued Status: Disconti nued on: 08/03/20 14 1:19PM;U ser: gabi; Vincentti on: Hemorrho ids - ([phone]);Prin jennifer: 11/04/19 14 Not Available Not Available Not Available Diflucan 150 mg tablet take 1 tablet by oral route today and repeat again on 02/26 completed Diflucan 150 mg oral tablet;R ecorded Status: Recorded on: 02/15/20 14 1:17PM;D iscontin ued Status: Disconti nued on: 02/27/20 14 9:38AM;U ser: crystal Est. Completi on: 02/16/20 14;Print ed: 02/15/20 14 Not Available Not Available Not Available penicilli n V potassium 500 mg tablet TAKE ONE (1) TABLET BY MOUTH FOUR TIMES A DAY; TAKE UNTIL ENTIRE RX IS FINISHED . 04/22 completed Not Available Not Available Not Available Nexium 40 mg capsule,d elayed release take 1 capsule by oral route daily for 15 days 08/22 completed Nexium 40 mg oral capsule, delayed release( DR/EC);R ecorded Status: Recorded on: 06/22/20 14 3:01PM;D iscontin ued Status: Disconti nued on: 08/22/19 15 4:57PM;U ser: colin; Est. Completi on: 07/07/20 14;Indic ation: Gastroes ophageal Reflux - (.[phone] 10) Not Available Not Available Not Available lidocaine HCl 2 % mucosal jelly Take 1 applicat ion 3 times a day by mucous route as needed for 30 days. 04/13 completed Not Available Not Available Not Available valacyclo vir 500 mg tablet Take 1 tablet twice a day by oral route as directed for 3 days. 04/13 completed Not Available Not Available Not Available ciproflox acin 500 mg tablet take 1 tablet (500 mg) by oral route every 12 hours for 10 days 10/25 completed ciproflo xacin HCl 500 mg oral tablet;R ecorded Status: Recorded on: 08/14/19 14 11:42AM; Disconti nued Status: Disconti nued on: 10/26/19 14 8:57AM;U ser: vaughn Est. Completi on: 08/24/19 14;Print ed: 08/14/19 14 Not Available Not Available Not Available sulfameth oxazole 800 mg-trimet hoprim 160 mg tablet 05/02 completed Not Available Not Available Not Available tramadol 50 mg tablet TAKE 1 TABLET 3 TIMES DAILYAS NEEDED. active Not Available Not Available No t Available ketorolac 30 mg/mL (1 mL) injection solution Inject 15 mg every day by intramus cular route. 05/28 completed Not Available Not Available Not Available Nexium 20 mg capsule,d elayed release take 1 capsule (20 mg) by oral route once daily at least 1 hour before a meal swallowi ng whole. Do not crush or chew granules . 11/29 completed Nexium 20 mg oral capsule, delayed release( /EC);R ecorded Status: Recorded on: 11/29/19 15 9:03AM;D iscontin ued Status: Disconti nued on: 11/30/19 15 11:54AM; User: maribel MorrisEstMaximilian Completi on: 05/27/20 15;Print ed: 11/29/19 15 Not Available Not Available Not Available prednison e 10 mg tablets in a dose pack take as directed 08/31 completed predniso ne 10 mg oral tablets, dose pack;Rec orded Status: Recorded on: 12/28/19 12 6:15PM;D iscontin ued Status: Disconti nued on: 08/31/19 13 2:08PM;U ser: gillisa; Printed: 12/28/19 12 Not Available Not Available Not Available citalopra m 20 mg tablet take 1 tablet (20 mg) by oral route once daily for 30 days 06/09 completed citalopr am 20 mg oral tablet;P rescribe Status: Prescrib ed on: 03/27/20 13 12:00PM; Disconti nued Status: Disconti nued on: 06/09/20 13 4:35PM;U ser: gillisa; Est. Completi on: 09/23/19 14;Pharm acyVerif ied: 03/27/20 13 12:00PM Not Available Not Available Not Available modafinil 200 mg tablet take 1 tablet (200 mg) by oral route once daily in the morning 04/13 completed Not Available Not Available Not Available estradiol 1 mg tablet TAKE 1 TABLET DAILY active Not Available Not Available No t Available amlodipin e 5 mg-benaze pril 10 mg capsule TAKE 1 CAPSULE BY MOUTH ONCE DAILY 02/23 completed Not Available Not Available Not Available ropinirol e 0.25 mg tablet TAKE 1 TABLET AT BEDTIME active Not Available Not Available No t Available cephalexi n 500 mg capsule TAKE 1 CAPSULE BY MOUTH TWICE DAILY FOR 10 DAYS 05/28 completed Not Available Not Available Not Available ranitidin e 150 mg tablet 05/02 completed Not Available Not Available Not Available promethaz ine 25 mg tablet TAKE ONE TABLET BY MOUTH EVERY 4 HOURS NEEDED 04/13 completed Not Available Not Available Not Available metoprolo l tartrate 50 mg tablet TAKE 1 TABLET TWICE DAILY 01/20 completed Not Available Not Available Not Available nitroglyc star 0.4 mg sublingua l tablet place 1 tablet (0.4 mg) by buccal route at the first sign of an attack; no more than 3 tablets are recommen ded within a 15 minute period. active Not Available Not Available No t Available oxybutyni n chloride ER 5 mg tablet,ex tended release 24 hr take 1 tablet (5 mg) by oral route once daily for 30 days 08/03 completed oxybutyn in chloride 5 mg oral tablet extended release 24hr;Rec orded Status: Recorded on: 02/15/20 14 1:05PM;D iscontin ued Status: Disconti nued on: 08/03/20 14 1:19PM;U ser: gabi; Est. Completi on: 06/14/20 14;Indic ation: Urinary Urge Incontin ence - (16.7883 10);Prin jennifer: 02/15/20 14 Not Available Not Available Not Available gabapenti n 300 mg capsule TAKE ONE CAPSULE BY MOUTH 3 TIMES A DAY 04/23 completed Not Available Not Available Not Available omeprazol e 20 mg capsule,d elayed release TAKE 1 CAPSULE DAILY active Not Available Not Available No t Available aspirin 81 mg chewable tablet Chew 1 tablet every day by oral route. 2024 active Not Available Not Available Not Avai lable Tylenol 325 mg tablet take 1 tablet (325 mg) by oral route every 4 hours as needed 01/13 completed Tylenol 325 mg oral tablet;R ecorded Status: Recorded on: 10/26/19 14 8:58AM;U ser: russella Not Available Not Available Not Available diclofena c sodium 75 mg tablet,de layed release take 1 tablet by oral route 2 times a day (after meals) as needed 10/25 completed diclofen ac sodium 75 mg oral tablet,d elayed release (/NESTOR); Prescrib e Status: Prescrib ed on: 03/29/20 13 10:22AM; Disconti nued Status: Disconti nued on: 10/26/19 14 9:38AM;U ser: colin; Est. Completi on: 09/25/19 14;Pharm acyVerif ied: 03/29/20 13 10:22AM Not Available Not Available Not Available pravastat in 20 mg tablet TAKE 1 TABLET AT BEDTIME 02/23 completed Not Available Not Available Not Available mupirocin 2 % topical ointment APPLY OINTMENT TOPICALL Y TO AFFECTED AREA THREE TIMES DAILY 06/19 completed Not Available Not Available Not Available gabapenti n 100 mg capsule take 1 capsule by oral route 3 times a day 03/29 completed gabapent in 100 mg oral capsule; Prescrib e Status: Prescrib ed on: 01/10/20 13 11:09AM; Disconti nued Status: Disconti nued on: 03/29/20 13 10:11AM; User: colin; Pharmacy Verified : 01/10/20 13 11:09AM Not Available Not Available Not Available estradiol 0.5 mg tablet take 1 tablet (0.5 mg) by oral route once daily 06/09 completed estradio l 0.5 mg oral tablet;P rescribe Status: Prescrib ed on: 03/27/20 13 1:42PM;D iscontin ued Status: Disconti nued on: 06/09/20 13 4:35PM;U ser: colin; Est. Completi on: 09/23/19 14;Pharm acyVerif ied: 03/27/20 13 1:42PM Not Available Not Available Not Available triamtere ne 75 mg-hydroc hlorothia zide 50 mg tablet TAKE 1 TABLET DAILY active Not Available Not Available No t Available dexametha sone sodium phosphate 4 mg/mL injection solution Inject 1 mL every day by intramus cular route. 12/05 completed Not Available Not Available Not Available [place] 7.5 mg-325 mg tablet take 1 tablet by oral route every 4 hours as needed for pain 09/12 completed [place] 7.5-325 mg oral tablet;c omment: was given from [facility];Rec orded Status: Recorded on: 08/03/20 14 1:20PM;D iscontin ued Status: Disconti nued on: 09/12/19 15 10:19AM; User: haym Not Available Not Available Not Available albuterol sulfate HFA 90 mcg/actua tion aerosol inhaler INHALE TWO (2) PUFFS EVERY FOUR (4) HOURS BY INHALATI ON ROUTE NEEDED active Not Available Not Available No t Available fluticaso ne propionat e 50 mcg/actua tion nasal spray,coretta pension SPRAY ONE (1) SPRAY BY INTRANAS AL ROUTE IN EACH NARE EVERY NIGHT AT BEDTIME active Not Available Not Available No t Available amoxicill in 875 mg-potass ium clavulana te 125 mg tablet Take 1 tablet every 12 hours by oral route for 10 days. 11/12 completed Not Available Not Available Not Available Nebulizer Assembly as directed , dx 496 04/13 completed Nebulize r Assembly ;Recorde d Status: Recorded on: 08/14/19 14 11:44AM; User: colin; Indicati on: - (-5);Tara nted: 08/14/19 14 Not Available Not Available Not Available cyclobenz aprine 5 mg tablet TAKE 1 TABLET BY MOUTH ONCE DAILY NEEDED 05/28 completed Not Available Not Available Not Available Premarin 0.625 mg/gram vaginal cream apply 0.5 applicat or by vaginal route twice weekly 03/03 completed Premarin 0.625 mg/gram vaginal cream;Re corded Status: Recorded on: 11/04/19 14 9:41AM;U ser: turnerk; EstMaximilian Rodríguezi on: 03/03/20 14;Print ed: 11/04/19 14 Not Available Not Available Not Available rosuvasta tin 40 mg tablet TAKE 1 TABLET DAILY active Not Available Not Available No t Available Spiriva with [employer] r 18 mcg and inhalatio n capsules USE 1 CAPSULE ONCE DAILY 01/13 completed Not Available Not Available Not Available Flovent HFA 44 mcg/actua tion aerosol inhaler inhale 2 puffs (88 mcg) by inhalati on route 2 times per day 08/31 completed Flovent HFA 44 mcg/actu ation inhalati on HFA aerosol inhaler; Recorded Status: Recorded on: 03/07/20 12 6:20PM;D iscontin ued Status: Disconti nued on: 08/31/19 13 2:08PM;U ser: gillisa; Indicati on: Cough - (786.2) Not Available Not Available Not Available naproxen BID 06/09 completed naproxen Oral;Rec orded Status: Recorded on: 02/16/20 13 1:20PM;D iscontin ued Status: Disconti nued on: 06/09/20 13 4:03PM;U ser: stroopr Not Available Not Available Not Available Symbicort 80 mcg-4.5 mcg/actua tion HFA aerosol inhaler inhale 2 puffs by inhalati on route 2 times per day in the morning and evening 12/09 completed Symbicor t 80-4.5 mcg/actu ation inhalati on HFA aerosol inhaler; comment: pt stopped using due to causing thrush mouth;Re corded Status: Recorded on: 08/31/19 13 2:08PM;D iscontin ued Status: Disconti nued on: 12/10/19 13 3:44PM;U ser: earlywin ec Not Available Not Available Not Available GaviLyte- N 420 gram oral solution 05/02 completed Not Available Not Available Not Available ClearLax 17 gram/dose oral powder MIX 17 GRAMS OF POWDER IN 8 OUNCES OF LIQUID AND DRINK ONCE DAILY 06/19 completed Not Available Not Available Not Available lidocaine 5 % topical ointment APPLY TO AFFECTED AREA(S) BY TOPICAL ROUTE 3 TIMES DAILY NEEDED 04/13 completed Not Available Not Available Not Available Myrbetriq 25 mg tablet,ex tended release TAKE 1 TABLET DAILY 01/16 completed Not Available Not Available Not Available Myrbetriq 50 mg tablet,ex tended release TAKE 1 TABLET DAILY active Not Available Not Available No t Available Tudorza Pressair 400 mcg/actua tion breath activated inhale 1 puff (400 mcg) by inhalati on route every 12 hours 09/25 completed Tudorza Pressair 400 mcg/actu ation inhalati on aerosol powdr breath activate d;Record ed Status: Recorded on: 01/11/20 15 12:44PM; Disconti nued Status: Disconti nued on: 09/25/19 16 10:10AM; User: maribel ;Printed : 01/11/20 15 Not Available Not Available Not Available Linzess 145 mcg capsule TAKE 1 CAPSULE DAILY active Not Available Not Available No t Available Spiriva Respimat 2.5 mcg/actua tion solution for inhalatio n INHALE TWO (2) PUFFS ONCE A DAY 04/13 completed Not Available Not Available Not Available metoprolo l tartrate 75 mg tablet TAKE 1 TABLET TWICE A DAY 04/29 /2025 completed Not Available Not Available Not Available Fluzone Quad (PF) 60 mcg (15 mcg x 4)/0.5 mL IM syringe PHARMACI ST ADMINIST ERED IMMUNIZA TION ADMINIST ERED AT TIME OF DISPENSI NG 10/21 completed Not Available Not Available Not Available Vitals Date Recorded Body height Body mass index (BMI) Body weight Respiratory rate Heart rate Oxygen saturation Oxygen saturation in Arterial blood by Pulse oximetry Systolic And Diastolic Provider Name and Address Organization Details Last Updated DateTime 5 157.48 cm 30.5 kg/m2 36191.9 3 g 18 /min 64 /min 97 % 97 % 118/68 mm[Hg] Shabana Jane [place] - [facility] 5 09:35:11 Social History Question Answer Notes LastModified by Organizat ion Details LastModified Time Tobacco Smoking Status Former Smoker Shabana Jane [place], [place] - [facility] 01/16/2025 09:20:54 Do You Have An Advance Directive? No Information not available 07/08/2016 Are You Blind Or Do You Have Difficulty Seeing? No Information not available 07/08/2016 Is Blood Transfusion Acceptable In An Emergency? Yes Information not available 03/16/2017 What Is Your Level Of Caffeine Consumption? Moderate Information not available 07/08/2016 How Much Tobacco Do You Chew? None Information not available 01/16/2025 In The 14 Days Before Symptom Onset, Have You Had Close Contact With A Laboratory-confir med COVID-19 While That Case Was Ill? No Information not available 02/23/2023 In The 14 Days Before Symptom Onset, Have You Had Close Contact With A Person Who Is Under Investigation For COVID-19 While That Person Was Ill? No Information not available 02/23/2023 Have You Been To An Area Known To Be High Risk For COVID-19? No Information not available 02/23/2023 Are You Deaf Or Do You Have Serious Difficulty Hearing? No Information not available 07/08/2016 What Type Of Diet Are You Following? REGULAR Information not available 07/08/2016 Which Illicit Or Recreational Drugs Have You Used? No Information not available 03/16/2017 Have You Processed Blood Or Body Fluids From An Ebola Virus Disease Patient Without Appropriate PPE? No Information not available 02/23/2023 Do You Reside In Or Have You Traveled To An Area Where Ebola Virus Transmission Is Active? No Information not available 02/23/2023 What Is The Highest Grade Or Level Of School You Have Completed Or The Highest Degree You Have Received? [id number] Information not available 02/17/2022 Have There Been Any Changes To Your Family Or Social Situation? No Information no t available 02/17/2022 What Is The Fluoride Status Of Your Home? Unknown Information not available 02/17/2022 Hard Of Hearing Or Deaf In One Or Both Ears? No Information not available 07/08/2016 Have You Recently Or Are You Planning To Travel To An Area With Zika Virus? No Information not available 02/23/2023 Legally Blind In One Or Both Eyes? No Information no t available 07/08/2016 Live Alone Or With Others? With Others Information not available 07/08/2016 Do You Have A Medical Power Of Route Supervisor? No Information not available 02/17/2022 What Was The Date Of Your Most Recent Tobacco Screening? 09/07/2024 Information not available 09/07/2024 How Many Children Do You Have? 2 Information not available 01/16/2025 What Is Your Current Pack Years? 30ormorepack years Information not available 11/29/2023 Performs Monthly Self-breast Exam? No Information no t available 03/16/2017 Do You Use Protection During Sex? Always Information not available 03/16/2017 Do You Use Protection Against STDs? No Information not available 01/16/2025 What Is Your Relationship Status? Information not available 07/08/2016 Do You Use Your Seat Belt Or Car Seat Routinely? Yes Information not available 01/16/2025 Seat Belts Used Routinely Yes Information not available 07/08/2016 Are You Sexually Active? No Information not available 01/16/2025 Smoke Alarm In Home Yes Information not available 07/08/2016 Do You Have Smoke And Carbon Monoxide Detectors In Your Home? Yes Information not available 02/17/2022 At What Age Did You Start Smoking Tobacco? 13 Information not available 11/29/2023 Are You Passively Exposed To Smoke? No Information no t available 02/17/2022 How Much Tobacco Do You Smoke? 0.25 PPD Information not available 11/29/2023 General Stress Level Low Information not available 03/16/2017 Do You Use Sunscreen Routinely? Yes Information not available 01/16/2025 Has Tobacco Cessation Counseling Been Provided? No Information not available 02/23/2023 How Many Years Have You Smoked Tobacco? 46 Stopped For 4 Years And Then Started Back Information not available 11/29/2023 Do You Have Difficulty Walking Or Climbing Stairs? No Information not available 07/08/2016 Sex: Female Functional Status Question Answer Note LastModified by [employer] Details LastModified Time Are you currently employed? No Information not available 01/16/2025 Do you have transportation difficulties? No Information not available 02/17/2022 Urinary incontinence assessment performed? Yes Information not available 03/16/2017 Are you able to care for yourself? Yes Information n ot available 07/08/2016 Do you have difficulty dressing or bathing? No Information not available 07/08/2016 Do you or have you ever used e-cigarettes or vape? Never used electronic cigarettes Information not available 01/16/2025 What is your exercise level? Moderate Information not available 01/16/2025 Do you use any illicit or recreational drugs? No Information not available 02/17/2022 Do you or have you ever used any other forms of tobacco or nicotine? No Information not available 02/23/2023 What is your level of alcohol consumption? None Information not available 07/08/2016 Are you able to walk? YESWOREST Information not available 03/16/2017 Do you have difficulty doing errands alone? No Information not available 07/08/2016 What is your occupation? retired Information not available 03/16/2017 Mental Status Question Answer Note LastModified by Organizat ion Details LastModified Time Do you feel stressed (tense, restless, nervous, or anxious, or unable to sleep at night)? [id number] Information not available 02/17/2022 Do you have difficulty concentrating, remembering or making decisions? No Information no t available 07/08/2016 Family History Relationship Description Onset Age of this Age Resolved Age Notes LastModified by Organization Details LastModified Time Unspecified Relation Anxiety disorder Not available 2015 17:17:10 Unspecified Relation Disorder of cardiovascul ar system cbuckler Not available 2024 09:20:36 Unspecified Relation Diabetes mellitus Not available 2015 17:17:37 Unspecified Relation Family history of neoplasm of lung cbuckler Not available 2024 09:20:36 Unspecified Relation Hypertensive disorder Not available 2015 17:18:08 Mother Chronic obstructive pulmonary disease cbuckler Not available 2024 09:20:36 Mother Harmful pattern of use of alcohol cbuckler Not available 2024 09:20:36 Sister Dementia cbuckler Not available 01/16/2025 09:20:36 Father Kidney disease cbuckler Not available 2024 09:20:36 Medical History Condition Response Pancreatitis N Coronary Artery Disease N Other N Gout N Atrial Fibrillation N congenital heart disease N Blood Diseases N Kidney Stones N Hyperthyroidism N Blood Transfusion N Rheumatoid arthritis N Erectile Dysfunction N amputation N Skin Lesions N COPD Y Depression N Pneumonia N Incontinence N Murmur N Edema N Alzheimer's Disease N Migraine Headaches N Tobacco Abuse N Anxiety Disorder N Hemorrhoids N Muscle, Joint, or Bone Problems Y Obesity N Vision or Eye Problems N Arthritis N Restless Leg Syndrome Y Polyps N Infertility N Mental Disorder N Carpal Tunnel N Acid Reflux (GERD) Y Cancer N Varicosities N Stroke N Tendonitis N Crohn's Disease N Hypercholesterolemia N Skin Cancer N Headaches N Fibromyalgia Y Anal Fissure N Irritable Bowel Syndrome N Kidney Disease N Heart Problems N Ear or Hearing Problems N Hospitalizations N Gallstones N Kidney or Bladder Problems N Goiter N Acne N Skin Problems N Eating Disorder N Montes's Esophagus N Hypertriglyceridemia N MRSA exposure N Constipation Y Embolism N Vitamin B12 Deficiency N Deviated Septum N Tuberculosis N AIDS/HIV N Myocardial Infarction N Asthma N Mitral Valve Disorders N Vertigo N Hepatitis N Thyroid Cancer N Neuropathy N Pulmonary Embolism N History of DVT N Herniated Disc N Chronic Ear Infections N Chicken Pox N Autism Spectrum Disorder (ASD) N Von Willebrands Disease N Thrombophilias N Breast Cancer N Hernia N Plantar Fasciitis Y Hospital Admission Other Than N Hypothyroidism N Lung Disease Y Defects or Inherited Disease N Developmental or Behavioral Disorders N Breast Problem N Difficulty Swallowing N Ovarian Cyst N Anesthesia Complications N Testosterone Deficiency N Meniere's disease N Head Injury/Concussion N Interstitial Cystitis N Congenital Anomalies N Hypoglycemia N Blood clot N Vitamin D Deficiency N Cellulitis N Endometriosis Y Fracture N Bladder or Kidney Problems N Liver Disease N Panic Disorder N Schizophrenia N Concussion N Spina Bifida N Allergies/Hayfever N Osteoarthritis N Parkinson's Disease N Disc Protrusion N STI N Esophagitis N Angina N Thyroid Problems N GI Problems N ADD/ADHD N Anemia N Multiple Sclerosis N Abnormal PAP N Lumbago N Mental Illness N Psychiatric Illness N Diabetes N Ovarian Cancer N Bedwetting N Degenerative Disc Disease N Seizures/Epilepsy N Congestive Heart Failure (CHF) N Hyperlipidemia N Syncope N Insomnia N Eczema N Abuse/Domestic Violence N Attention Deficient Disorder N Diverticulitis N Dementia N Ulcerative colitis N Cerebrovascular Disease N Depression N Guillain-[place] N Sleep Apnea Y Aneurysm N Bronchitis N Heart Disease N Suicidal Ideation N Pre-Eclampsia N Hypertension Y Osteoporosis N Gynecological History Statement/Question Response Date of Last Mammogram 09/06/2023 Date of LMP 08/09/1986 Post Menopausal Bleeding N STIs/STDs N Current Control Method None Age at Menarche 11 Age at First Child 13 If Post Menopausal, Age at Menopause 38 Date of Last Colonoscopy 03/23/2017 Most Recent Bone Density 03/07/2014 Sexually Active? N Menses Monthly N Date of Last Pap Smear 09/28/2012 Sexual Problems? N LMP Unknown Hormone Replacement Therapy Y Obstetrics History GPAL:G 2 P 0 0 0 2 Type Value Living 2 Total 2 Immunizations Vaccine Type Date Status Note Provider Name and Address Organization Details Recorded Time influenza, unspecified formulation 015 completed Not Available [facility] 08/30/[facility]23 08:08:46 Influenza, split virus, quadrivalent, preservative 023 completed Shabana [place]alley, [place] - [facility] 05/28/2023 10:35:00 pneumococcal polysaccharide PPV23 11/05/2 014 completed Not Available [facility] 09/09/2019 02:21:58 zoster recombinant 024 cancelled patient objection Emory Pineda, [employer] [address], [place], [address], [place] - [facility] 11/29/2023 09:39:44 Pneumococcal conjugate PCV20, polysaccharide [id number] conjugate, adjuvant, PF 024 cancelled patient objection Emory Blancoleslie, [employer] [address], [place], [address], [place] - [facility] 11/29/2023 09:53:28 Tdap 024 completed Shabana Lara null, [facility] 03/13/[facility]24 16:48:06 Influenza, high-dose, trivalent, PF 024 completed Shabana Lara null, [place] - [facility] 06/19/2024 10:34:39 Influenza, split virus, quadrivalent, preservative 019 completed Not Available [facility] 08/30/2023 08:08:46 Pneumococcal conjugate PCV20, polysaccharide [id number] conjugate, adjuvant, PF 025 completed Shabana Lara null, [facility] 12/05/2024 13:44:27 Influenza, split virus, quadrivalent, preservative 016 completed Not Available [facility] 08/26/2019 03:54:20 SARS-COV-2 (COVID-19) vaccine, UNSPECIFIED 021 completed Not Available [facility] 08/30/2023 08:08:46 Influenza, split virus, quadrivalent, preservative 018 completed Shabana Lara null, [place] - [facility] 08/11/2022 10:48:52 Tdap 013 completed Shabana Lara null[place] - [facility] 08/11/2022 10:48:52 Influenza, split virus, quadrivalent, preservative 015 completed Shabana Lara null[place] - [facility] 08/11/2022 10:48:52 COVID-19 vaccine, vector-nr, [id number], PF, 0.5 mL 021 completed Shabana Jane null, [place] - [facility] 08/11/2022 10:48:52 Influenza, split virus, quadrivalent, preservative 017 completed Shabana Jane null[place] - [facility] 08/11/2022 10:48:52 Influenza, split virus, quadrivalent, preservative 015 completed Shabana Jane null[place] - [facility] 08/11/2022 10:48:52 Td (adult), 2 Lf tetanus toxoid, preservative free, adsorbed 996 completed Shabana Jane null[place] - [facility] 08/11/2022 10:48:52 Hep B, unspecified formulation 996 completed Shabana Jane null[place] - [facility] 08/11/2022 10:48:52 Influenza, split virus, quadrivalent, preservative 014 completed Shabana Jane null[place] - [facility] 08/11/2022 10:48:52 Hep B, unspecified formulation 996 completed Shabana Jane null[place] - [facility] 08/11/2022 10:48:52 Hep B, adult 996 completed Shabana Jane null[place] - [facility] 08/11/2022 10:48:52 Influenza, split virus, quadrivalent, preservative 022 completed Shabana Jane null[place] - [facility] 08/11/2022 10:48:52 Influenza, split virus, quadrivalent, PF 020 completed Ning Sherwood null, [place] - [facility] 11/29/2023 08:51:02 Past Encounters Encounter ID Performer Location Encounter Start Date Encounter Closed Date Diagnosis/Indication Diagnosis SNOMED-CT Code Diagnosis ICD10 Code Diagnosis Note [id number] Emory Pineda APRN [address] [address] 01/16/2025 09:15:56 01/16/2025 10:29:20 Adult health examination 623517485 Z00.00 Depression screening 171 893453 Z13.31 A depression screening was completed via a standardiz ed screening tool. 5 minutes were spent discussing depression screening results and risk factors. Examinatio n of blood pressure 754760186 Z01.30 Diet education 15558983 Z71.3 Counseling 674237308 Z71 .82 Exercise counseling . Patient encouraged to exercise 30 minutes 5 days a week. At [facility] ed risk for falls 731280147 Z91.81 STEADI FAST screening score of _3___. Advance care planning 71 0893889 Z71.89 Chronic constipation 236 208548 K59.09 Hepatitis C screening declined 0519683974 5105 Z53.20 Urinary incontinence 165 261013 R32 trial of increase mybetriq - Health Concerns Section Related Observation LastModified by Organization Detai ls LastModified Time None Recorded Concern Status LastModified by Organization Details LastModified Time None Recorded Payers Encounter Date Sequence Insurance Name Policy Number Policy Dias Covered Member ID Dias Member ID Guarantor Name 01/16/2025 2 [place] [employer] [place] FFS/TRADITI ONAL Samantha Galvez [id number] Samantha Galvez 01/16/2025 1 [employer] [id number] Samantha Galvez [id number] Samantha Galvez Notes Date Note Type Note Provider Name and Address Organization Details Recorded Time 01/16/2025 text/html Medicare Annual Wellness VisitReported bypatient.Diet and Nutrition:discussed portion control; discussed diet improvement Fracture Risk:no history of fractures; no recent explained fracture; no sudden unexplained fractures; no previous musculoskeletal injuries Physical Activity:good physical condition; discussed weightbearing activities; discussed exercise habits Depression Risk:never feels sad, empty, or tearful; no loss of interest in activities; no significant changes in weight; no sleep disturbances or insomnia; no agitation; no loss of energy; no feelings of worthlessness or guilt; no thoughts of suicide; no history of depression; no history of mood disorders Orientation:no disorientation to time; no disorientation to date; no disorientation to place Concentration and Memory:no decreased concentrating ability; does not forget words;memory lapses or loss Speech/Motor difficulties:no speech difficulties; no difficulty expressing formulated concepts; no difficulty with fine manipulative tasks; no difficulty writing/copying; no slowed reaction time; does not knock things over when trying to pick them up Activities of Daily Living:able to bathe with limited or no assistance; able to contol urination and bowels; able to dress with limited or no assistance; able to feed self with limited or no assistance; able to get out of chair or bed with limited or no assistance; able to groom with limited or no assistance; able to toilet with limited or no assistance Instrumental Activities of Daily Living:able to do house work with limited or no assistance; able to grocery shop with limited or no assistance; able to manage medications with limited or no assistance; able to manage money with limited or no assistance; able to prepare meals with limited or no assistance; able to use the phone with limited or no assistance Falls Risk Assessment:no frequent falls while walking; no fall in the past year; no fall since last visit; no dizziness/vertigo Home Safety:no unsafe oh hazzards; no unsafe stairs; no unsafe gas appliances; use of seatbelts; good lighting in the home Current level of painNo pain: 0/10 64 yr old female presents for a medicare annual wellness exam. She has had some trouble with constipation- has tried multiple otc medications and no improvement. She would like to try linzess. pt states she also is having urinary incontinence and having to wear pull ups, states if she feels the urge she has to go she has a weak bladder. Emory Pineda, [employer] [address], [place], [address], [facility] - [facility] 01/16/2025 11:04:02 OBGyn Episode No OBEpisode recorded.
--- OUTSIDE RECORDS SUMMARY | 2025-02-23 16:38 | XMS_ITS | Data Portability ---
Author Organization [facility] Address [address] [place] [address] Care Team Providers Care Creative Services Intern Name Role Phone EMORY PINEDA Primary Care Provider CAM Zarate Director Motion Picture CHARITO RATLIFF Male Model [phone] GERARDO WINSLOW Fruit Checker Assessment Encounter Date Assessment Date Assessment LastModified [...] RENEE [facility], [address], Zach F, [place], [address], 01/23/2025 04:04:59 HbA1c (hemoglob in A1c), blood 2024 025 [facility], [address] [place] [address], [address], 12/05/2024 13:15:01 drug screen, 14 drugs (detectim ed), urine 2024 025 RENEE [facility], [address], [place] [address], [place], [address], 12/15/2024 19:07:33 drug screen, [facility]23 [facility] [address] [place] [address], [address], 06/19/2024 11:21:24 Referral None recorded. Procedures None recorded. Surgeries None recorded. Imaging None recorded. Medication Orders Linzess 145 mcg capsule 2024 025 [facility], [facility], [address], 01/16/2025 11:02:51 Myrbetriq 50 mg tablet,ex tended release 2024 025 [facility], [place], [address], 01/16/2025 11:02:51 aspirin 81 mg chewable tablet 2024 025 [facility], [place], [address], 12/05/2024 09:48:29 estradiol 1 mg tablet 2024 025 [facility], [place], [address], 12/05/2024 09:48:28 ropinirol e 0.25 mg tablet 2024 025 [facility], [facility] [place], [address], 12/05/2024 09:48:29 tramadol 50 mg tablet 2024 025 [facility], [place], [address], 12/05/2024 09:48:33 citalopra m 40 mg tablet 2024 025 [facility], [place] [place], [address], 12/05/2024 09:48:31 Myrbetriq 25 mg tablet,ex tended release 2024 025 [facility], [facility], [place], [address], 01/16/2025 11:05:10 triamtere ne 75 mg-hydroc hlorothia zide 50 mg tablet 2024 025 [facility], [facility] [place], [address], 12/05/2024 09:48:26 omeprazol e 20 mg capsule,d elayed release 2024 025 [facility], [place] [place], [address], 12/05/2024 09:48:28 rosuvasta tin 40 mg tablet 2024 025 [facility], [facility] [place], [address], 12/05/2024 09:48:26 tramadol 50 mg tablet 2024 025 [facility] [place], [address], 10/30/2024 09:53:59 dexametha sone sodium phosphate 4 mg/mL injection solution 2024 025 eli Not available 12/05/2024 08:25:47 prednison e 20 mg tablet 2024 025 [facility] [address], [address], 12/05/2024 08:45:34 tramadol 50 mg tablet 2024 025 [facility] [address] [facility], [place], [address], 09/07/2024 09:44:08 tramadol 50 mg tablet 2023 024 [facility], [address] [facility], [place], [address], 06/19/2024 09:56:15 Patient TargetsNo targets recorded. Patient Instructions Encounter Date Encounter Id Patient Instructions Last Modified By Organization Details Last Modified Time 01/16/2025 [id number] advance directives: care instructions efryman Not available 01/16/2025 11:02:44 learning about depression ef[place] Not available 01/16/2025 11:02:44 preventing falls : care instructions efryman Not available 01/16/2025 11:02:44 medicare preventive services guide ef[place] Not available 01/16/2025 11:02:44 Reason for Referral None Reported. Results Created Date Observation Date Name Description Value Unit Range Abnormal Flag Note LastModifiedBy Organization Detail LastModifiedTime 06/19/2006/19/2024 drug scree n, urine THC negati ve Not Available [address], [address], 06/19/2024 09:54:29 06/19/20 24 06/19/2024 drug scree n, urine TCA negati ve Not Available [address], [address], 06/19/2024 09:54:29 06/19/20 24 06/19/2024 drug scree n, urine BAR negati ve Not Available [address], [address], 06/19/2024 09:54:29 06/19/20 24 06/19/2024 drug scree n, urine BZO negati ve Not Available [address], [address], 06/19/2024 09:54:29 06/19/20 24 06/19/2024 drug scree n, urine MTD negati ve Not Available [address], [address], 06/19/2024 09:54:29 06/19/20 24 06/19/2024 drug scree n, urine AMP negati ve Not Available [address], [address], 06/19/2024 09:54:29 06/19/20 24 06/19/2024 drug scree n, urine MOP negati ve Not Available [address], [address], 06/19/2024 09:54:29 06/19/20 24 06/19/2024 drug scree n, urine OXY negati ve Not Available [address], [address], 06/19/2024 09:54:29 06/19/20 24 06/19/2024 drug scree n, urine MDMA negati ve Not Available [address], [address], 06/19/2024 09:54:29 06/19/20 24 06/19/2024 drug scree n, urine PAYAM negati ve Not Available [address], [address], 06/19/2024 09:54:29 06/19/20 24 06/19/2024 drug scree n, urine PCP negati ve Not Available [address], [address], 06/19/2024 09:54:29 06/19/20 24 06/19/2024 drug scree n, urine MET negati ve Not Available [address], [address], 06/19/2024 09:54:29 12/06/19 25 12/15/2024 COMPL IANCE DRUG IRENE SIS, UR summary report (summary) FINAL ===== ===== ===== ===== ===== ===== ===== ===== ===== ===== ===== ===== ===== === TOXAS SURE COMP DRUG IRENE SIS,U R ===== ===== ===== ===== ===== ===== ===== ===== ===== ===== ===== ===== ===== === Test Resul t Flag Units Drug Prese nt Trama dol >8333 ng/mg creat O-Floyd methy ltram adol >8333 ng/mg creat N-Floyd methy ltram adol 2550 ng/mg creat Sourc e of trama dol is a presc ripti on medic ation . O-floyd methy ltram adol and N-floyd methy ltram adol are expec jennifer metab olite s of trama dol. Cital opram PRESE NT Desme thylc mary pram PRESE NT Desme thylc mary pram is an expec jennifer metab olite of cital opram or the enant iomer ic form, escit alopr am. Aceta minop hen PRESE NT Metop rolol PRESE NT ===== ===== ===== ===== ===== ===== ===== ===== ===== ===== ===== ===== ===== === Test Resul t Flag Units Ref Range Creat inine 60 mg/dL >=20 ===== ===== ===== ===== ===== ===== ===== ===== ===== ===== ===== ===== ===== === Decla red Medic ation s: Medic ation list was not provi ded. ===== ===== ===== ===== ===== ===== ===== ===== ===== ===== ===== ===== ===== === For clini jose manuel consu ltati on, pleas e call [phone]. ===== ===== ===== ===== ===== ===== ===== ===== ===== ===== ===== ===== ===== === Not Available [facility] ([facility]) [address] [facility] [address], [place], [address], 12/15/2024 19:07:33 12/06/1912/15/2024 COMPL IANCE DRUG IRENE SIS, UR pdf . Not Available [facility] ([facility]) [address] [facility] [address], [place], [address], 12/15/2024 19:07:33 12/06/19 25 12/05/2024 HbA1c (hemo globi n A1c), blood HbA1C 5.6 % Not Available [address], [place], [address], 12/05/2024 13:12:45 Result Notes None recorded. Problems Name Problem SNOMED Code Status Onset Date Resolution Date Notes Provider Name and Address Organization Details Recorded Time Obstructive sleep apnea syndrome 67230978 Active Linsey Babin MD [address], [place], [address], [place] - [facility] 9 07:27:00 Moderate chronic obstructive pulmonary disease 076876837 Active Linsey Babin MD [address], [place], [address], [place] [facility] 2 18:03:48 Pulmonary emphysema 18734981 Active Linsey Babin MD [address], [place], [address], [place] [facility] 2 18:03:48 Endometriosis (clinical) 244267380 Active Linsey Babin MD [address], [place], [address], [place] [facility] 2 18:03:48 Plantar fasciitis 296387118 Active Linsey Babin MD [address], [place], [address], [place] [facility] 2 18:03:48 Prediabetes 531006299 Active 2015 Linsey Babin MD [address], [place], [address], [place] [facility] 2 18:03:48 Restless legs 98940110 Active 2016 Linsey Babin MD [address], [place], [address], [place] [facility] 2 18:03:48 Chronic obstructive pulmonary disease 71999757 Active 2016 Linsey Babin MD [address], [place], [address], [place] [facility] 2 18:03:48 Generalized osteoarthritis 812802147 Active 2016 Linsey Babin MD [address], [place], [address], [place] [facility] 2 18:03:48 Mixed hyperlipidemia 336102637 Active 2018 Linsey Babin MD [address], [place], [address], [place] [facility] 2 18:03:48 Gastroesophage al reflux disease without esophagitis 088477457 Active 2018 Linsey Babin MD [address], [place], [address], [place] [facility] 2 18:03:48 Generalized anxiety disorder 82228022 Active 2018 Linsey Babin MD [address], [place], [address], [place] [facility] 2 18:03:48 Menopausal syndrome 995041816 Active 2018 Linsey Babin MD [address], [place], [address], [place] [facility] 2 18:03:48 Hypertensive disorder 22945649 Active 2019 Linsey Babin MD [address], [place], [address], [place] [facility] 2 18:03:48 Body mass index 30+ - obesity 147760797 Active 2021 Linsey Babin MD [address], [place], [address], [place] [facility] 2 18:03:48 Osteoarthritis 279059502 Active 2021 Linsey Babin MD [address], [place], [address], [place] [facility] 2 18:03:48 Chronic pain 38247108 Active 2021 Emory Pineda APRN [address], [place], [address], [place] [facility] 2 09:45:39 Hyperlipidemia 61410307 Active 2021 Emory Pineda APRN [address], [place], [address], [place] - [facility] 09:32:08 Problem Notes None recorded. Procedures Surgical History Date Name Laterality Status Provider Name and Address Organization Details Recorded Time 01/17/20 25 Advance Care Planning completed Shabana Lara [place] - [facility] 01/16/2025 09:19:44 01/17/20 25 Functional Status Assessed completed Shabana Anguianoler [place] - [facility] 01/16/2025 09:19:44 11/29/19 24 Advance Care Planning completed Ning Stears [place] - [facility] 11/29/2023 08:33:43 11/29/19 24 Functional Status Assessed completed Ning Stears [place] - [facility] 024 08:33:43 09/06/19 24 Date of Last Mammogram completed Ning Jerris [place] - [facility] 09/07/2023 10:37:32 03/31/20 22 Advance Care Planning completed Shabana Lara [place] - [facility] 03/31/2022 08:51:12 03/31/20 22 Functional Status Assessed completed Shabanakevin Lara [place] - [facility] 03/31/2022 08:51:12 03/23/20 17 Date of Last Colonoscopy completed Maya Burnett RN [address], [place], [address], [place] - [facility] 07/19/2019 15:24:37 07/25/20 14 Cholecystectomy, laparoscopic completed Ning Jerris [place] - [facility] 03/16/2017 08:32:44 03/07/20 14 Most Recent Bone Density completed Ning Jerris [place] - [facility] 03/16/2017 08:33:44 09/28/19 13 Date of Last Pap Smear completed Shabana Lara [place] [facility] 06/09/2023 11:49:59 12/16/19 12 Cardiac Cath completed Ning Jerris [place] - [facility] 03/2017 08:35:04 08/23/18 81 Hysterectomy completed Shabana Lara [place] [facility] 01/16/2025 09:20:59 11/10/18 74 Caesarean Section completed Shabana Lara [place] [facility] 01/16/2025 09:20:59 delivery completed Ning Stears [place] [facility] 03/16/2017 08:22:28 Orthopedic Surgery completed Melissia Desiree [place] - [facility] 07/08/2016 17:20:45 TVT completed Melissia Desiree [place] [facility] 07/08/2016 17:21:01 Bladder irrigation tubing completed Melissia Desiree [place] [facility] 07/08/2016 17:21:21 Hysterectomy completed Ning Jerris [place] [facility] 03/16/2017 11:09:41 Carpal tunnel surgery completed Ning Stears [place] - [facility] 03/16/2017 08:24:24 Imaging Results None recorded. Procedure Notes None recorded. Medical Equipment None Reported. Allergies Allergen ID Allergen Name Allergen Category Reaction Reaction Severity Criticality Documentation Date Start Date Code Code System Note Provider Name and Address Organization Details Recorded Time 40125 Medicinal product containin g tetracycl ine structure and acting as antibacte rial agent (product) medicatio n Not available Not available Not available 05/15/20162009 61706 1004 SNOMED Not Available [facility] 6 10:04:05 Medications Name Sig Start Date [...] ation: Acute Bacteria l Sinusiti s - (08.4619 00);Prin jennifer: 08/31/19 14 Not Available Not Available Not Available promethaz ine-DM 6.25 mg-15 mg/5 mL oral syrup take 5 millilit ers by oral route every 4 hours as needed 10/25 completed prometha zine-DM 6.25-15 mg/5 mL oral syrup;Re corded Status: Recorded on: 08/16/19 14 9:33AM;D iscontin ued Status: Disconti nued on: 10/26/19 14 8:58AM;U ser: gillisa; Indicati on: Cough - (16.7862 00);Prin jennifer: 08/16/19 14 Not Available Not [...] 14 8:57AM;U ser: gillisa; Est. Completi on: 05/25/20 10 Not Available Not Available Not Available pravastat in 40 mg tablet take 1 tablet (40 mg) by oral route once daily 08/31 completed pravasta tin 40 mg oral tablet;R ecorded Status: Recorded on: 02/04/20 12 5:25PM;D iscontin ued Status: Disconti nued on: 08/31/19 13 2:08PM;U ser: gillisa; Est. Completi on: 08/02/20 12;Print ed: 02/04/20 [...] Disconti nued on: 08/14/19 14 11:13AM; User: colin; Est. Completi on: 10/03/19 13;Indic ation: Bacteria [...] Prilosec 40 mg oral capsule, delayed release( DR/EC);R ecorded Status: Recorded on: 05/28/20 14 11:20AM; [...] Disconti nued on: 08/03/20 14 1:19PM;U ser: brandink; Indicati on: Hemorrho ids - (4556 );Prin jennifer: 11/04/19 14 Not Available Not Available Not Available Diflucan 150 mg tablet take 1 tablet by oral route today and repeat again on 02/26 completed Diflucan 150 mg oral tablet;R ecorded Status: Recorded on: 02/15/20 14 1:17PM;D iscontin ued Status: Disconti nued on: 02/27/20 14 9:38AM;U ser: gabi; Est. Completi on: 02/16/20 14;Print ed: 02/15/20 [...] Nexium 40 mg oral capsule, delayed release( /EC);R ecorded Status: Recorded on: 06/22/20 14 3:01PM;D iscontin ued Status: Disconti nued on: 08/22/19 15 4:57PM;U ser: colin; Est. Completi on: 07/07/20 14;Indic ation: Gastroes ophageal Reflux - (5308 ) Not Available Not Available Not Available lidocaine [...] Disconti nued on: 10/26/19 14 8:57AM;U ser: colin; Est. Completi on: 08/24/19 14;Print ed: 08/14/19 [...] on: 11/30/19 15 11:54AM; User: maribel MorrisEstMaximilian Cooper on: 05/27/20 15;Print ed: 11/29/19 15 Not Available Not Available Not Available prednison e 10 mg tablets in a dose pack take as directed 08/31 completed predniso ne 10 mg oral tablets, dose pack;Rec orded Status: Recorded on: 12/28/19 12 6:15PM;D iscontin ued Status: Disconti nued on: 08/31/19 13 2:08PM;U ser: mayelaisa; Printed: 12/28/19 12 Not Available Not Available [...] Status: Recorded on: 10/26/19 14 8:58AM;U ser: maribel Not Available Not Available Not Available diclofena [...] nued on: 06/09/20 13 4:35PM;U ser: colin; Completi on: 09/23/19 14;Pharm acyVmarjan ied: 03/27/20 13 1:42PM Not Available Not Available Not Available triamtere ne 75 mg-hydroc hlorothia zide 50 mg tablet TAKE 1 TABLET DAILY active Not Available Not Available No t Available dexametha sone sodium phosphate 4 mg/mL injection solution Inject 1 mL every day by intramus cular route. 12/05 completed Not Available Not Available Not Available Columbia 7.5 mg-325 mg tablet take 1 tablet by oral route every 4 hours as needed for pain 09/12 completed Columbia 7.5-325 mg oral tablet;c omment: was given from [facility];Rec orded Status: Recorded on: 08/03/20 14 1:20PM;D iscontin ued Status: Disconti nued on: 09/12/19 15 10:19AM; User: radha Not Available Not Available Not Available albuterol [...] Status: Recorded on: 08/14/19 14 11:44AM; User: vaughn Alves on: - (-5);Tara nted: 08/14/19 14 Not Available Not Available Not Available cyclobenz aprine 5 mg tablet TAKE 1 TABLET BY MOUTH ONCE DAILY NEEDED 05/28 completed Not Available Not Available Not Available Premarin 0.625 mg/gram vaginal cream apply 0.5 applicat or by vaginal route twice weekly 03/03 completed Premarin 0.625 mg/gram vaginal cream;Re corded Status: Recorded on: 11/04/19 14 9:41AM;U ser: brandink; EstMaximilian Rodríguezi on: 03/03/20 14;Print ed: 11/04/19 [...] Disconti nued on: 09/25/19 16 10:10AM; User: [email or web address] ;Printed : 01/11/20 15 Not Available Not Available Not Available Linzess 145 mcg capsule TAKE 1 CAPSULE DAILY active Not Available Not Available No t Available Spiriva Respimat 2.5 mcg/actua tion solution for inhalatio n INHALE TWO (2) PUFFS ONCE A DAY 04/13 completed Not Available Not Available Not Available metoprolo l tartrate 75 mg tablet TAKE 1 TABLET TWICE A DAY 12/05 completed Not Available Not Available Not Available Fluzone Quad (PF) 60 mcg (15 mcg x 4)/0.5 mL IM syringe PHARMACI ST ADMINIST ERED IMMUNIZA TION ADMINIST ERED AT TIME OF DISPENSI NG 10/21 completed Not Available Not Available Not Available Vitals Date Recorded Body height Body mass index (BMI) Body weight Body temperature Heart rate Oxygen saturation Oxygen saturation in Arterial blood by Pulse oximetry Respiratory rate Systolic And Diastolic Provider Name and Address Organization Details Last Updated DateTime 5 157.48 cm 32.1 kg/m2 55366.0 6 g 97.7 [degF] 78 /min 96 % 96 % 18 /min 118/64 mm[Hg] Shabana Lara [place] - [facility] 5 08:45:39 Date Recorded Body height Body mass index (BMI) Body weight Body temperature Respiratory rate Oxygen saturation Oxygen saturation in Arterial blood by Pulse oximetry Heart rate Systolic And Diastolic Provider Name and Address Organization Details Last Updated DateTime 5 157.48 cm 32 kg/m2 72686.6 6 g 98 [degF] 18 /min 94 % 94 % 68 /min 110/68 mm[Hg] Ning Presley [place] - [facility] 5 09:49:02 Date Recorded Body height Body mass index (BMI) Body weight Respiratory rate Heart rate Oxygen saturation Oxygen saturation in Arterial blood by Pulse oximetry Systolic And Diastolic Provider Name and Address Organization Details Last Updated DateTime 5 157.48 cm 31.3 kg/m2 94081.3 g 18 /min 68 /min 96 % 96 % 112/60 mm[Hg] Shabana Jane [facility] 5 08:45:02 Date Recorded Body height Body mass index (BMI) Body weight Respiratory rate Heart rate Oxygen saturation Oxygen saturation in Arterial blood by Pulse oximetry Systolic And Diastolic Provider Name and Address Organization Details Last Updated DateTime 5 157.48 cm 30.5 kg/m2 86148.9 3 g 18 /min 64 /min 97 % 97 % 118/68 mm[Hg] Shabana Jane [facility] 5 09:35:11 Date Recorded Body height Body mass index (BMI) Body weight Body temperature Heart rate Oxygen saturation Oxygen saturation in Arterial blood by Pulse oximetry Respiratory rate Systolic And Diastolic Provider Name and Address Organization Details Last Updated DateTime 4 157.48 cm 32.2 kg/m2 45823.9 6 g 97.1 [degF] 61 /min 96 % 96 % 18 /min 118/62 mm[Hg] Shabana Lara [facility] 4 08:49:24 Social History Question Answer Notes LastModified by Organizat ion Details LastModified Time Tobacco Smoking Status Former Smoker Shabana omalley [facility] 01/16/2025 09:20:54 Do You Have An [...] Or The Highest Degree You Have Received? [id number] Information not available 02/17/2022 Have There Been [...] Do You Have A Medical Power Of Police Radio Dispatcher? No Information not available 02/17/2022 What Was [...] LastModified by Organizat ion Details LastModified Time Are you currently [...] anxious, or unable to sleep at night)? [id number] Information not available 02/17/2022 Do you have difficulty concentrating, remembering or making decisions? No [email or web address] Information no t available 07/08/2016 Family History [...] colitis N Cerebrovascular Disease N Depression N Guillain-[place] N Sleep Apnea Y Aneurysm N Bronchitis [...] influenza, unspecified formulation 015 completed Not Available [facility] 08/30/2023 08:08:46 Influenza, split virus, quadrivalent, preservative 023 [facility] 10:35:00 pneumococcal polysaccharide PPV23 014 completed Not Available [facility] 09/09/2019 02:21:58 zoster recombinant 024 cancelled patient objection Emory Pineda APRN [address], [address], [facility] 11/29/2023 09:39:44 Pneumococcal conjugate PCV20, polysaccharide [id number] conjugate, adjuvant, PF 024 cancelled patient objection Emory Pineda APRN [address], [place], [address], [facility] 11/29/2023 09:53:28 Tdap 024 [facility]/13[facility]2024 16:48:06 Influenza, high-dose, trivalent, PF 024 [facility] 06/19/2024 10:34:39 Influenza, split virus, quadrivalent, preservative 019 completed Not Available [facility] 08/30/2023 08:08:46 Pneumococcal conjugate PCV20, polysaccharide [id number] conjugate, adjuvant, PF 025 completed Shabana Lara null, [facility] 12/05/2024 13:44:27 Influenza, split virus, quadrivalent, preservative 016 completed Not Available [facility] 08/26/2019 03:54:20 SARS-COV-2 (COVID-19) vaccine, UNSPECIFIED 021 completed Not Available [facility] 08/30/2023 08:08:46 Influenza, split virus, quadrivalent, preservative 018 completed Shabana Jane null, [facility] 08/11/2022 10:48:52 Tdap 013 completed Shabana Jane null, [facility] 08/11/2022 10:48:52 Influenza, split virus, quadrivalent, preservative 015 completed Shabana Anguianoler null, [facility] 08/11/2022 10:48:52 COVID-19 vaccine, vector-nr, [id number], PF, 0.5 mL 021 completed Shabana Jane null, [facility] 08/11/2022 10:48:52 Influenza, split virus, quadrivalent, preservative 017 completed Shabana Jane null, [facility] 08/11/2022 10:48:52 Influenza, split virus, quadrivalent, preservative 015 completed Shabana Anguianoler null, [facility] 08/11/2022 10:48:52 Td (adult), 2 Lf tetanus toxoid, preservative free, adsorbed 996 completed Shabana Jane null, [facility] 08/11/2022 10:48:52 Hep B, unspecified formulation 996 completed Shabana Jane null, [place] - [facility] 08/11/2022 10:48:52 Influenza, split virus, quadrivalent, preservative 014 completed Shabana Jane null[place] - [facility] 08/11/2022 10:48:52 Hep B, unspecified formulation 996 completed Shabana Jane [place] [facility] 08/11/2022 10:48:52 Hep B, adult 996 completed Shabana omalley, [place] - [facility] 08/11/2022 10:48:52 Influenza, split virus, quadrivalent, preservative 022 completed Shabana omalley, [place] [facility] 08/11/2022 10:48:52 Influenza, split virus, quadrivalent, PF 020 completed Ning Sherwood null, [place] - [facility] 11/29/2023 08:51:02 Past Encounters Encounter ID Performer Location Encounter Start Date Encounter Closed Date Diagnosis/Indication Diagnosis SNOMED-CT Code Diagnosis ICD10 Code Diagnosis Note [id number] [facility] [address] [place] [address] 04/25/2010 00:00:00 [id number] [facility] [address] [place] [address] 06/27/2010 00:00:00 [id number] [facility] [address] [place] [address] 04/25/2010 00:00:00 [id number] [facility] [address] [place] [address] 05/27/2011 00:00:00 [id number] [facility] [facility] [address] [place] [address] 12/28/2011 00:00:00 [id number] Linsey Babin MD [address] [place] [address] 07/15/2016 08:33:15 07/15/2016 10:29:49 Influenza vaccine needed 0691963277 106 Z23 Generalize d osteoarthritis 028955977 M15.9 Plantar fasciitis 736542 003 M72.2 Moderate c hronic obstructive pulmonary disease 269776204 J44.9 Pulmonary emphysema 8743 3001 J43.9 Prediabetes 836065874 R7 3.03 Mixed hyperlipidemia 267 507839 E78.2 [id number] Linsey Babin MD [address] [place] [address] 09/04/2016 09:51:17 09/04/2016 10:11:49 Acute sinusitis 68162835 J01.90 Acute sialoadenitis 1097 59957 K11.21 [id number] Linsey Babin MD [address] [place] [address] 10/09/2016 10:57:00 10/09/2016 11:35:16 Acute bronchitis with bronchospasm 36247502 J20.9 [id number] Linsey Babin MD [address] [place] [address] 10/19/2016 10:22:03 10/19/2016 12:06:58 Bronchospasm 5669579 J98.01 [id number] Linsey Babin MD [address] [place] [address] 11/12/2016 13:02:09 11/12/2016 14:04:22 Diarrhea 32412179 R19.7 [id number] Linsey Babin MD [address] [place] [address] 12/11/2016 15:28:59 12/11/2016 16:20:52 Generalized osteoarthritis 336635035 M15.9 Chronic ob structive pulmonary disease 51985337 J44.9 [id number] Linsey Babin MD [address] [place] [address] 01/13/2017 08:28:56 01/13/2017 09:56:18 Restless legs 01331208 G25.81 Chronic ob structive pulmonary disease 65361735 J44.9 Generalize d osteoarthritis 787442172 M15.9 Plantar fasciitis 159434 003 M72.2 Moderate c hronic obstructive pulmonary disease 787912625 J44.9 Pulmonary emphysema 8743 3001 J43.9 Major depr essive disorder 823472616 F32.9 Essential hypertension 00429811 I10 Menopausal syndrome 1237 89119 N95.9 Mixed hyperlipidemia 267 552220 E78.2 [id number] DO Monik [place] [employer] [address] [place] [address] [place] [address] 03/16/2017 10:43:08 03/16/2017 11:49:55 Body mass index 30+ - obesity 605746861 Z68.39 Vaginal lesion 870948355 N94.89 [id number] Linsey Babin MD [address] [place] [address] 06/11/2017 15:38:29 06/11/2017 16:24:16 Influenza vaccine [facility] 3290652636 106 Z23 [id number] Linsey Babin MD [address] [place] [address] 07/15/2017 08:22:05 07/15/2017 09:57:28 Generalized osteoarthritis 588977458 M15.9 Chronic ob structive pulmonary disease 76977013 J44.9 Plantar fasciitis 992809 003 M72.2 Prediabetes 450587850 R7 3.03 Restless legs 58053813 G 25.81 Pulmonary emphysema 8743 3001 J43.9 Blood gluc ose outside reference range 837274711 R73.09 Mixed hyperlipidemia 267 324113 E78.2 [id number] Linsey Babin MD [address] [place] [address] 09/01/2017 14:09:33 09/01/2017 15:15:53 Pain of right shoulder joint 0799718602 2142349 M25.511 injury 3 weeks ago, fell into a case, decreased rom [id number] Linsey Babin MD [address] [place] [address] 12/27/2017 11:05:27 12/27/2017 12:05:26 Generalized osteoarthritis 537773244 M15.9 Plantar fasciitis 313002 003 M72.2 Restless legs 71640754 G 25.81 Renewal of prescription 044102755 Z76.0 Neoplasm o f uncertain behavior of skin 71071593 D48.5 chest [id number] Linsey Babin MD [address] [place] [address] 01/31/2018 10:59:37 01/31/2018 12:19:58 Plantar fasciitis 007096775 M72.2 Generalize d osteoarthritis 898831908 M15.9 Sciatica 66349409 M54.30 Chronic ob structive pulmonary disease 20170194 J44.9 [id number] Linsey Babin MD [address] [place] [address] 05/02/2018 09:26:56 05/02/2018 10:35:33 Chronic obstructive pulmonary disease 43762597 J44.9 Generalize d osteoarthritis 994693485 M15.9 Plantar fasciitis 302156 003 M72.2 Administra tion of influenza vaccine 94203784 Z23 Moderate c hronic obstructive pulmonary disease 360490847 J44.9 Restless legs 96650272 G 25.81 Prediabetes 346151795 R7 3.03 Pulmonary emphysema 8743 3001 J43.9 Mixed hyperlipidemia 267 286783 E78.2 [id number] Linsey Babin MD [address] [place] [address] 08/04/2018 08:14:26 08/04/2018 09:46:59 Generalized osteoarthritis 931481772 M15.9 Plantar fasciitis 538181 003 M72.2 Moderate c hronic obstructive pulmonary disease 390769147 J44.9 Prediabetes 668886975 R7 3.03 Pulmonary emphysema 8743 3001 J43.9 Restless legs 95996534 G 25.81 Chronic ob structive pulmonary disease 37552361 J44.9 Blood gluc ose outside reference range 408292095 R73.09 Anticoagulant therapy 18 0830721 Z79.01 Impacted c erumen in left ear 5469758775 848236 H61.22 Parotid sialolithiasis 064389507 K11.5 [id number] Linsey Babin MD [address] [place] [address] 10/10/2018 08:03:39 10/10/2018 10:05:38 Body mass index 30+ - obesity 403487858 Z68.35 Plantar fasciitis 795118 003 M72.2 Generalize d osteoarthritis 852731467 M15.9 Prediabetes 917257303 R7 3.03 Gastroesop hageal reflux disease without esophagitis 266865009 K21.9 Chronic ob structive pulmonary disease 22981105 J44.9 Mixed hyperlipidemia 267 154061 E78.2 Generalize d anxiety disorder 77340699 F41.1 Hypertensi ve heart disease 26713230 I11.9 Pulmonary emphysema 8743 3001 J43.9 Moderate c hronic obstructive pulmonary disease 611015763 J44.9 Menopausal syndrome 1237 54466 N95.9 Restless legs 98199695 G 25.81 [id number] Linsey Babin MD [address] [place] [address] 01/09/2019 09:20:18 01/09/2019 11:19:48 Plantar fasciitis 602135697 M72.2 Generalize d osteoarthritis 041699322 M15.9 Disorder o f salivary gland 19125256 K11.9 Chronic ob structive pulmonary disease 52167034 J44.9 Gastroesop hageal reflux disease without esophagitis 835317600 K21.9 Mixed hyperlipidemia 267 669757 E78.2 Prediabetes 789636631 R7 3.03 Body mass index 30+ - obesity 765735648 Z68.35 [id number] Linsey Babin MD [address] [place] [address] 04/13/2019 09:14:30 04/13/2019 10:47:39 Generalized osteoarthritis 629407965 M15.9 Plantar fasciitis 802063 003 M72.2 Generalize d anxiety disorder 02777577 F41.1 Menopausal syndrome 1237 29323 N95.9 Hypertensi ve heart disease 08604155 I11.9 Gastroesop hageal reflux disease without esophagitis 526041439 K21.9 Mixed hyperlipidemia 267 322013 E78.2 Restless legs 19290479 G 25.81 Obstructiv e sleep apnea syndrome 42667385 G47.33 [id number] Linsey Babin MD [address] [place] [address] 07/19/2019 08:35:49 07/19/2019 10:16:04 Plantar fasciitis 392170926 M72.2 Generalize d osteoarthritis 742257009 M15.9 Sialoadenitis 46577546 K 11.20 resolved Neuropathy 226591665 G62 .9 Mixed hyperlipidemia 267 623467 E78.2 Gastroesop hageal reflux disease without esophagitis 199845937 K21.9 Swallowing painful 96944 002 R13.19 Blood gluc ose outside reference range 233398079 R73.09 Long-term drug therapy 379698075 Z79.804 [id number] Linsey Babin MD [address] [place] [address] 11/07/2019 12:20:09 11/07/2019 13:31:34 Dyspnea 400320162 R06.00 Fatigue 68780956 R53.83 [id number] Linsey Babin MD [address] [place] [address] 04/23/2020 08:21:56 04/23/2020 09:58:23 Generalized osteoarthritis 805777948 M15.9 Mixed hyperlipidemia 267 774401 E78.2 Prediabetes 287071045 R7 3.03 Pulmonary emphysema 8743 3001 J43.9 Moderate c hronic obstructive pulmonary disease 868590033 J44.9 Generalize d anxiety disorder 42239412 F41.1 Plantar fasciitis 815032 003 M72.2 Obstructiv e sleep apnea syndrome 87086048 G47.33 Vitamin D deficiency 347 04915 E55.9 Hypertensive disorder 38 917667 I10 Gastroesop hageal reflux disease without esophagitis 853840416 K21.9 Menopausal syndrome 1237 73934 N95.9 Restless legs 60446056 G 25.81 Blood gluc ose outside reference range 561535837 R73.09 Body mass index 30+ - obesity 569012246 Z68.33 [id number] Linsey Babin MD [address] [place] [address] 10/21/2020 08:31:13 10/21/2020 11:35:03 Generalized osteoarthritis 582874013 M15.9 Body mass index 30+ - obesity 347968980 Z68.33 Hypertensive disorder 38 018525 I10 Mixed hyperlipidemia 267 723236 E78.2 Moderate c hronic obstructive pulmonary disease 544495424 J44.9 [id number] Linsey Babin MD [address] [place] [address] 01/13/2021 11:35:47 01/13/2021 12:46:05 Generalized osteoarthritis 243567835 M15.9 Plantar fasciitis 783401 003 M72.2 Gastroesop hageal reflux disease without esophagitis 508389214 K21.9 Moderate c hronic obstructive pulmonary disease 661609455 J44.9 Mixed hyperlipidemia 267 693624 E78.2 Prediabetes 608600207 R7 3.03 Pulmonary emphysema 8743 3001 J43.9 Restless legs 01120457 G 25.81 Obstructiv e sleep apnea syndrome 20284148 G47.33 Hypertensive disorder 38 674569 I10 [id number] Linsey Babin MD [address] [place] [address] 04/22/2021 11:11:21 04/22/2021 12:45:31 Mixed hyperlipidemia 335830542 E78.2 Generalize d osteoarthritis 727573524 M15.9 Hypertensive disorder 38 803168 I10 Obstructiv e sleep apnea syndrome 42279228 G47.33 Plantar fasciitis 943974 003 M72.2 Gastroesop hageal reflux disease without esophagitis 118331269 K21.9 Generalize d anxiety disorder 30621913 F41.1 Moderate c hronic obstructive pulmonary disease 599608600 J44.9 Prediabetes 483522343 R7 3.03 Pulmonary emphysema 8743 3001 J43.9 Menopausal syndrome 1237 65736 N95.9 Restless legs 11840698 G 25.81 [id number] Linsey Babin MD [address] [place] [address] 10/20/2021 07:53:49 10/20/2021 10:55:29 Generalized osteoarthritis 002736453 M15.9 Prediabetes 210170803 R7 3.03 Mixed hyperlipidemia 267 195489 E78.2 Long-term drug therapy 098718785 Z79.899 Blood gluc ose outside reference range 798252582 R73.09 Plantar fasciitis 891072 003 M72.2 Body mass index 30+ - obesity 986766235 Z68.34 [id number] Linsey Babin MD [address] [place] [address] 01/20/2022 07:57:06 01/20/2022 13:21:18 Osteoarthritis 934318356 M19.90 Hypertensive disorder 38 172042 I10 Obstructiv e sleep apnea syndrome 14510311 G47.33 Menopausal syndrome 1237 12042 N95.9 Chronic ob structive pulmonary disease 87656511 J44.9 Generalize d osteoarthritis 085153591 M15.9 Plantar fasciitis 401897 003 M72.2 Mixed hyperlipidemia 267 718965 E78.2 Pulmonary emphysema 8743 3001 J43.9 Prediabetes 699476937 R7 3.03 [id number] Emory Pineda[address] [address] 02/17/2022 08:46:34 02/17/2022 10:56:18 Prediabetes 381007648 R73.03 Establishe d DiagnosisC ontrolledA 1c:10/20/21 5.6 Goals: Prevention of progressio n to diabetesMo nitoring: [id number] ent: Dietary and lifestyle modificati ons.Dispos ition: Follow up in 3 months Osteoarthritis 447463476 M19.90 Pt compliant with plan of careKasper reviewedpt does not need refills at this time Body mass index 30+ - obesity 499417765 Z68.34 Chronic ob structive pulmonary disease 10203472 J44.9 Generalize d osteoarthritis 173430838 M15.9 Generalize d anxiety disorder 93290334 F41.1 Hypertensive disorder 38 384389 I10 Mixed hyperlipidemia 267 631880 E78.2 Pulmonary emphysema 8743 3001 J43.9 [id number] Emory Pineda[address] [address] 03/31/2022 08:16:24 03/31/2022 09:55:23 Osteoarthritis 499198568 M19.90 last uds: 2Pt compliant with plan of careKasper reviewedcs a on file Adult heal th examination 767664228 Z00.00 labs next visit Depression screening 171 910791 Z13.89 Examinatio n of blood pressure 307888328 Z01.30 Diet education 35766511 Z71.3 Counseling 210289398 Z71 .82 Exercise counseling . Patient encouraged to exercise 30 minutes 5 days a week. [facility] 075816821 Z91.81 Advance care planning 71 3048553 Z71.89 Chronic pain 04593125 G8 9.29 Pt compliant with plan of careEz reviewedme dication compliance discussedL ast uds:Control substance agreement on file Chronic ob structive pulmonary disease 21972510 J44.9 Generalize d osteoarthritis 405070368 M15.9 Gastroesop hageal reflux disease without esophagitis 741927031 K21.9 Generalize d anxiety disorder 85787199 F41.1 Hypertensive disorder 38 871533 I10 Mixed hyperlipidemia 267 631953 E78.2 Prediabetes 772670454 R7 3.03 Establishe d DiagnosisC ontrolledA 1c:10/20/21 5.6 Goals: Prevention of progressio n to diabetesMo nitoring: [id number] ent: Dietary and lifestyle modificati ons.Dispos ition: Follow up in 1 month Restless legs 92183498 G 25.81 Pulmonary emphysema 8743 3001 J43.9 Body mass index 30+ - obesity 532537489 Z68.34 Long-term current use of drug therapy 904040908 Z79.002 [id number] Emory Pineda APRN [address] [address] 04/10/2022 13:58:28 04/10/2022 14:42:50 Acute bronchitis 78116108 J20.9 rapid COVID-19 is negative. Tylenol 325 mg every 6-8 hours as needed. Maintain an adequate hydration, increase fluid intake. I advised to wash hands frequently and also practice respirator y hygiene.Se e us back or go to Er right away if symptoms gets worse or develops any new symptoms or complaints . I also recommende d to call 911 and go to the hospital emergency department (ER) right away should develop any difficulty breathing, shortness of air, chest pain, confusion, change in behavior, difficulty in rousing, low blood pressure, bluish discolorat ion of skin, failure of kidneys to produce urine, falls or other symptoms or complaints . [id number] Emory Pineda APRN [address] [address] 05/11/2022 08:25:28 05/11/2022 09:53:49 Administration of influenza vaccine 59635289 Z23 Influenza vaccine needed 0358616179 106 Z23 Chronic ob structive pulmonary disease 18324662 J44.9 Chronic pain 40774025 G8 9.29 Pt compliant with plan of careKasper reviewedme dication compliance discussedL ast uds:Control substance agreement on file Generalize d osteoarthritis 557701730 M15.9 Gastroesop hageal reflux disease without esophagitis 944880413 K21.9 Generalize d anxiety disorder 85182106 F41.1 Hypertensive disorder 38 958976 I10 Mixed hyperlipidemia 267 064261 E78.2 Moderate c hronic obstructive pulmonary disease 764483631 J44.9 Obstructiv e sleep apnea syndrome 52376866 G47.33 Osteoarthritis 696710166 M19.90 last uds: 2Pt compliant with plan of careTashspronald reviewedcs a on file Prediabetes 807581992 R7 3.03 Establishe d DiagnosisC ontrolledA 1c:checked today Goals: Prevention of progressio n to diabetesMo nitoring: M0pFctnezs ent: Dietary and lifestyle modificati ons.Dispos ition: Follow up in 3 months Restless legs 05844275 G 25.81 Hyperlipidemia 67674155 E78.5 [id number] Emory Pineda APRN [address] [address] 08/11/2022 10:41:38 08/11/2022 11:20:07 Chronic pain 22329976 G89.29 Pt compliant with plan of careKasper reviewedme dication compliance discussedL ast uds:Control substance agreement on file Long-term drug therapy 181432136 Z79.899 Chronic ob structive pulmonary disease 91959528 J44.9 follow up with pulmonolog y Generalize d osteoarthritis 075117220 M15.9 continue meds Generalize d anxiety disorder 07093343 F41.1 Patient identified triggers for anxiety and impact of anxious thinking on functionin g. Discussed strategies to regulate symptoms and need for compliance with treatment. Hypertensive disorder 38 081403 I10 continue meds Moderate c hronic obstructive pulmonary disease 243598262 J44.9 [id number] Emory Pineda APRN [address] [address] 11/24/2022 10:13:23 11/24/2022 11:34:31 Hyperlipidemia 99806766 E78.5 Moderate c hronic obstructive pulmonary disease 338270771 J44.9 Hypertensive disorder 38 593960 I10 continue meds Prediabetes 024052215 R7 3.03 Establishe d DiagnosisC ontrolledA 1c:checked today Goals: Prevention of progressio n to diabetesMo nitoring: [id number] ent: Dietary and lifestyle modificati ons.Dispos ition: Follow up in 3 months Pulmonary emphysema 8743 3001 J43.9 Chronic pain 50305095 G8 9.29 Pt compliant with plan of careKasper reviewed and appropriat emedicatio n compliance discussedL ast uds:Control substance agreement on file [id number] Emory Pineda [address] [address] 02/23/2023 08:13:28 02/23/2023 10:28:26 Chronic pain 84108834 G89.29 Pt compliant with plan of careKasper reviewed and appropriat emedicatio n compliance discussedL ast uds:Control substance agreement on file Generalize d anxiety disorder 15385094 F41.1 Patient identified triggers for anxiety and impact of anxious thinking on functionin g. Discussed strategies to regulate symptoms and need for compliance with treatment. Hypertensive disorder 38 070517 I10 Mixed hyperlipidemia 267 651288 E78.2 Prediabetes 565605086 R7 3.03 Establishe d DiagnosisC ontrolledA 1c:checked today Goals: Prevention of progressio n to diabetesMo nitoring: P1sXethtxu ent: Dietary and lifestyle modificati ons.Dispos ition: Follow up in 3 months Restless legs 36451023 G 25.81 Body mass index 30+ - obesity 997893551 Z68.34 Overactive urinary bladder 498600873 N32.81 if med does not work will refer to urologyadv ised not to take with tramadol [id number] Emory Pineda [address] [place] [address] 04/13/2023 13:16:32 04/13/2023 14:17:54 Spasm of back muscles 119464387 M62.830 Coronary atherosclerosis 445939526 I25.[address] weber - will set up heart cath to evaluate abnormal ct Abscess 829477209 L02.91 keep area clean [id number] [facility] [place] [place] [address] [address] 05/28/2023 08:15:19 05/28/2023 10:05:20 Hyperlipidemia 18940105 E78.5 Chronic ob structive pulmonary disease 62220948 J44.9 follow up with pulmonolog y Body mass index 30+ - obesity 374065689 Z68.34 Influenza vaccine needed 2320997327 106 Z23 Obesity 212294386 E66.9 Chronic pain 20905466 G8 9.29 Pt compliant with plan of Jana reviewed and appropriat emedicatio n compliance discussedL ast uds:Control substance agreement on file Long-term current use of drug therapy 191707252 Z79.899 Hypertensive disorder 38 582986 I10 [id number] [facility] [address] 08/05/2023 14:36:20 08/05/2023 15:16:19 Pharyngitis 436741667 J02.9 Candidiasis of mouth 797 72292 B37.0 [id number] [facility] [address] 08/30/2023 08:08:07 08/30/2023 09:48:56 Hyperlipidemia 34055383 E78.5 labs next appointmen t Prediabetes 852599998 R7 3.03 Establishe d DiagnosisC ontrolledA 1c:checked today Goals: Prevention of progressio n to diabetesMo nitoring: V1vAgwhnjp ent: Dietary and lifestyle modificati ons.Dispos ition: Follow up in 3 months Chronic pain 02379728 G8 9.29 Pt compliant with plan of careTashsper reviewed and appropriat emedicatio n compliance discussedL ast uds:Control substance agreement on file Gastroesop hageal reflux disease 092864131 K21.9 Constipation 82423349 K5 9.00 Pain in right foot 07930 58145 04090 M79.565 [id number] Emory Pineda APRN [address] [address] 11/29/2023 08:18:38 11/29/2023 09:47:37 Adult health examination 955888327 Z00.00 Depression screening 171 739775 Z13.31 A depression screening was completed via a standardiz ed screening tool. 5 minutes were spent discussing depression screening results and risk factors. Examinatio n of blood pressure 077705059 Z01.30 Diet education 96747374 Z71.3 Counseling 947737256 Z71 .82 Exercise counseling . Patient encouraged to exercise 30 minutes 5 days a week. [facility] 905556501 Z91.81 STEADI FAST screening score of _1____. Advance care planning 71 7406392 Z71.89 Finding of body mass index 892650959 Z68.32 32.9 Chronic ob structive pulmonary disease 62481822 J44.9 follow up with pulmonolog y Chronic pain 42861775 G8 9.29 Pt compliant with plan of Jana reviewed and appropriat emedicatio n compliance discussedL ast uds:Control substance agreement on file Generalize d osteoarthritis 373711671 M15.9 continue meds Gastroesop hageal reflux disease without esophagitis 472775769 K21.9 Generalize d anxiety disorder 88773082 F41.1 Patient identified triggers for anxiety and impact of anxious thinking on functionin g. Discussed strategies to regulate symptoms and need for compliance with treatment. Mixed hyperlipidemia 267 385713 E78.2 Prediabetes 959502423 R7 3.03 Establishe d DiagnosisC ontrolledA 1c:checked today Goals: Prevention of progressio n to diabetesMo nitoring: R9eNcwjfmc ent: Dietary and lifestyle modificati ons.Dispos ition: Follow up in 3 months Hepatitis C screening declined 6887894881 5105 Z53.20 HIV screen ing declined 3222998931 17906 Z53.20 Active or passive immunization 336406140 Z23 [id number] Emory Pineda [address] [address] 03/13/2024 08:20:56 03/13/2024 09:59:35 Hyperlipidemia 45260212 E78.5 Chronic pain 14462443 G8 9.29 Pt compliant with plan of careKasper reviewed and appropriat emedicatio n compliance discussedL ast uds: 03/13/24Cont rol substance agreement on file Prediabetes 761293780 R7 3.03 Establishe d DiagnosisC ontrolledA 1c:checked today Goals: Prevention of progressio n to diabetesMo nitoring: X4pSzautft ent: Dietary and lifestyle modificati ons.Dispos ition: Follow up in 3 months Menopausal syndrome 1237 20264 N95.9 Body mass index 30+ - obesity 240602706 Z68.31 31.3 Obesity 699776701 E66.9 Long-term drug therapy 614341484 Z79.414 [id number] Emory Pineda [address] [address] 06/19/2024 08:05:14 06/19/2024 09:38:26 Prediabetes 789776398 R73.03 Establishe d DiagnosisC ontrolledG oals: Prevention of progressio n to diabetesMo nitoring: P0nBkbxfls ent: Dietary and lifestyle modificati ons.Dispos ition: Follow up in 3 months Influenza vaccine needed 6539124980 106 Z23 Chronic pain 83813377 G8 9.29 Pt compliant with plan of careKasper reviewed and appropriat emedicatio n compliance discussedL ast uds: 06/19/24Co ntrol substance agreement on file Long-term current use of drug therapy 583892564 Z79.968 [id number] Emory Pineda [address] [address] 09/07/2024 08:13:13 09/07/2024 10:13:40 Chronic pain 77854757 G89.29 Pt compliant with plan of careKasper reviewed and appropriat emedicatio n compliance discussedL ast uds: 06/19/24Co ntrol substance agreement on file Hyperlipidemia 76860658 E78.5 [id number] Emory Pineda [address] [address] 10/19/2024 09:42:15 10/19/2024 10:50:17 Chronic pain 97912428 G89.29 Pt compliant with plan of careKasper reviewed and appropriat emedicatio n compliance discussedL ast uds: 06/19/24Co ntrol substance agreement on file Low back p ain co-occurrent with neuralgia of left sciatic nerve 0896244555 8815605 M54.42 steroids- start tommotrinr otate heat and iceif worsen or no improvemen t return [id number] Emory Pineda [address] [address] 12/05/2024 08:09:48 12/05/2024 09:50:41 Prediabetes 455594096 R73.03 Chronic ob structive pulmonary disease 86459925 J44.9 Generalize d anxiety disorder 97942022 F41.1 Patient identified triggers for anxiety and impact of anxious thinking on functionin g. Discussed strategies to regulate symptoms and need for compliance with treatment. Menopausal syndrome 1237 25066 N95.9 Overactive urinary bladder 697218088 N32.81 if med does not work will refer to urologyadv ised not to take with tramadol Gastroesop hageal reflux disease 590225008 K21.9 Restless legs 88952276 G 25.81 Hyperlipidemia 71630804 E78.5 Chronic pain 37813500 G8 9.29 Pt compliant with plan of careKasper reviewed and appropriat emedicatio n compliance discussedL ast uds: 12/05/24Con trol substance agreement on file Hypertensive disorder 38 113003 I10 Active immunization 3387 9002 Z23 Long-term current use of drug therapy 919356775 Z79.755 [id number] Emory Pineda [address] [address] 01/16/2025 09:15:56 01/16/2025 10:29:20 Adult health examination 286530686 Z00.00 Depression screening 171 891851 Z13.31 A depression screening was completed via a standardiz ed screening tool. 5 minutes were spent discussing depression screening results and risk factors. Examinatio n of blood pressure 304171050 Z01.30 Diet education 57912811 Z71.3 Counseling 205911041 Z71 .82 Exercise counseling . Patient encouraged to exercise 30 minutes 5 days a week. [facility] for [facility] 363671634 Z91.81 STEADI FAST screening score of _3___. Advance care planning 71 8902715 Z71.89 Chronic constipation 236 901180 K59.09 Hepatitis C screening declined 4229157592 5105 Z53.20 Urinary incontinence 165 651571 R32 trial of increase mybetriq - Health Concerns Section Related Observation LastModified by Organization Detai ls LastModified Time None Recorded Concern Status LastModified by Organization Details LastModified Time None Recorded Advance Directives Directive N: Payers Insurance Date Sequence Insurance Name Policy Number Policy Dias Covered Member ID Dias Member ID Guarantor Name 03/13/2024 2 [employer] Samantha Galvez [id number] Samantha Galvez 09/07/2024 1 [employer] (MEDICARE REPLACEMENT/A DVANTAGE - PPO) Samantha Galvez [id number] Samantha Galvez 03/13/2024 2 [employer] - [employer] [place] (MEDICAID REPLACEMENT - HMO) [place] Samantha Galvez [id number] Samantha Galvez 01/13/2025 [employer] (MEDICARE REPLACEMENT/A DVANTAGE - PPO) Samantha Galvez [id number] Samantha Galvez 03/13/2024 1 [employer] - [employer] [place] (MEDICAID REPLACEMENT - HMO) [place] Samantha Galvez [id number] Samantha Galvez 03/13/2024 1 [employer] Samantha Galvez [id number] Samantha Galvez 01/13/2025 [place] [facility] [place]MEDICAID[place] Samantha Galvez [id number] Samantha Galvez 01/13/2025 1 [employer] [id number] Samantha Galvez [id number] Samantha Levine Lenny 01/13/2025 2 MEDICAID-[facility] CHOICES - FFS/TRADITION [place] Samantha Levine Lenny [id number] Samantha Levine Lenny 10/19/2024 1 [place]MEDICARE REPLACEMENT HMO) [id number] Samantha Ulloa Lenny [id number] Samantha Levine Lenny Notes Date Note Type Note Provider Name and Address Organization Details Recorded Time 06/19/2024 text/html 63 yr old female presents for a follow up on chronic conditions. needs med refills for chronic pain,menopause. and labs for pre dm,hyperlipidemia,thy roid.pt states her pain is well controlled on meds and only takes them as needed. pt states doing well. requesting flu vaccine Dontino Pineda, [facility] [address], [place], [address], [place] - [facility] 06/19/2024 09:57:17 09/07/2024 text/html 64 yr old female presents for a follow up on pre diabetes and chronic pain. Needs refill on tramadol refilled. pt states tramadol helps with her pain and she only takes them as needed. pt states they help her be able to complete her adls. Emory Pineda, [facility] [address], [place], [address], [place] [facility] 09/07/2024 09:44:34 10/19/2024 text/html 64 year old femgonzález pop who presents to the office today with concerns of left hip pain radiating down left leg into footalso needs tramadol- pt states meds help with her chronic pain Emory Pineda, [facility] [address], [place], [address], [place] [facility] 10/19/2024 10:38:52 12/05/2024 text/html 64 yr old female presents for a follow up on pre diabetes and chronic pain. Needs refill on tramadol refilled. pt states tramadol helps with her pain and she only takes them as needed. pt states they help her be able to complete her adls. Shabana omalley, [place] - [facility] 12/05/2024 13:13:10 01/16/2025 text/html Medicare Annual Wellness VisitReported bypatient.Diet [...] she has a weak bladder. Emory Pineda, [facility] [address], [place], [address], [place] [facility] 01/16/2025 11:04:02 OBGyn Episode No OBEpisode recorded.
[2025-02-23] MEDS: ACETAMINOPHEN 500MG TAB 1000 MG PO (17:07)
[2025-02-23] MEDS: COCAINE 4% TOPICAL SOLN 4ML BOTTLE 1 ML TP (17:08)
[2025-02-23] MEDS: LIDOCAINE 2% UROJET 10ML TP (17:09)
--- NOTE | 2025-02-23 17:21 | PC.NURSE ---
LET put on at 1720
[2025-02-23 19:14] VITALS: BP 124/73; PULSE 68; RESP 16; TEMP 36.9; O2SAT 98
== END 2025-02-23 19:16 | disposition home or self-care (01) ==
PROVIDERS: Emergency Provider Student in an Organized Health Care Education/Training Program; PCP Nurse Practitioner Family
DX: S61.412A Laceration without foreign body of left hand, initial encounter (principal); I10 Essential (primary) hypertension; E78.5 Hyperlipidemia, unspecified
CPT/HCPCS: 12002; 73130; 99283; J0169